=== PATIENT | female | born 1990 | race Caucasian/White ===

== ENCOUNTER 2020-05-27 01:00 | Observation (INO) | payer BC, SELFPAY ==
[2020-05-27 01:16] VITALS: BP 103/57; PULSE 84
--- NOTE | 2020-06-20 20:32 | PM.OBTRLD ---
OB - Triage/Final Diagnosis Final Diagnosis (1) Spotting: Code(s): N92.0 - Excessive and frequent menstruation with regular cycle Status: Acute
== END 2020-05-27 01:55 | disposition home or self-care (01) ==
PROVIDERS: Admitting Provider Obstetrics & Gynecology; Visit Provider Obstetrics & Gynecology
DX: O26.859 Spotting complicating pregnancy, unspecified trimester (principal); Z3A.00 Weeks of gestation of pregnancy not specified
CPT/HCPCS: G0378; G0379

== ENCOUNTER 2020-07-12 01:51 | Observation (INO) | payer BC, SELFPAY ==
--- NOTE | ~2020-07-12 | US_ITS ---
EXAMINATION: US OB limited w BPP DATE: 07/12/2020 07:08 INDICATION: Vaginal bleeding during third trimester TECHNIQUE: Real-time pelvic ultrasound was performed. The interpreting radiologist was not present fo r the study. COMPARISON: None. FINDINGS: There is a single living fetus in breech presentation. The placenta is anterior. heart rate is 159 beats per minute (bpm). The amniotic fluid index is 13.9 cm which is normal Biophysical profile performed by the technologist: breathing (30 sec sustained breathing in 30 minutes): 2 out of 2 movement (3 gross body movements in 30 minutes): 2 out of 2 tone (one episode of qzzkgfu-psnetqdji-szpoqrd limb movement): 2 out of 2 Amniotic fluid pocket (2 cm): 2 out of 2 Total score: 8 out of 8 IMPRESSION: 1. Single living fetus in breech presentation. 2. Biophysical profile 8 out of 8. 3. Normal amniotic fluid index. Reviewed, dictated and finalized at location A. [facility]
--- NOTE | 2020-07-12 01:51 | OBADM ---
This patient, Madiha Orta, admitted to the OB room OB Post 116 for observation. Patient/family oriented to hospital policies and general routines including ID bracelet, bed and alarms, visiting hours, pain management, procedures, bathroom and other care routines, personal items, smoking policy, room service/diet, and visiting hours. Patient/Family are encouraged to report perceived risks to care and to ask questions if they do not understand what they are told or what they should do.
[2020-07-12 02:05] VITALS: BP 112/67; PULSE 73; RESP 18; TEMP 36.3
[2020-07-12 02:15] VITALS: BMI 31.3
[2020-07-12] MEDS: LACTATED RINGERS 1,000 ML 999 ML IV CONT (02:41)
[2020-07-12 04:50] VITALS: BP 114/58; PULSE 81; RESP 20; TEMP 36.6
[2020-07-12] MEDS: LACTATED RINGERS 1,000 ML 125 ML IV CONT (07:26)
[2020-07-12 07:29] VITALS: BP 117/75; PULSE 95
[2020-07-12 07:59] VITALS: TEMP 36.6
--- NOTE | 2020-07-12 08:08 | PM.IMHP ---
H&P: HPI History of Present Illness Date/Time: 07/12/20 08:08 Chief complaint: Vag. bleeding Narrative: Madiha Orta is a 30 year old female Multiparous at 28 weeks gestation who presents for vaginal bleeding. She had a moderate amount of bright red vaginal bleeding. It resolved quickly. She denied any contractions, she denies any loss of fluid, she reports good movement. Denies any nausea, vomiting, fever, chills. She denies chest pain or shortness of breath. She reported a mild trauma where 1 of her children sat on her abdomen. It was mildly painful. She does have an anterior placenta. Review of Systems Constitutional: Constitutional: Reports no additional constitutional complaints, Denies fatigue, Denies headache(s), Denies lethargy and Denies weakness Eyes: Eyes: Reports no additional eye complaints, Denies blurry vision and Denies photophobia ENT: Reports as per HPI, Denies headache(s) and Denies neck pain Cardiovascular: Cardiovascular: Denies chest pain, Denies diaphoresis, Denies leg edema, Denies palpitations and Denies dyspnea Respiratory: Respiratory: Denies hemoptysis, Denies dyspnea and Denies wheezing Gastrointestinal: Gastrointestinal: Denies abdominal pain, Denies melena, Denies bloating, Denies hematochezia, Denies nausea and Denies vomiting Genitourinary: Genitourinary: Reports no additional female genitourinary complaints Musculoskeletal: Musculoskeletal: Denies joint swelling, Denies neck pain, Denies numbness and Denies stiffness Neurologic: Denies Abnormal speech present, Denies confusion, Denies headache(s), Denies numbness and Denies weakness Psychiatric: Psychiatric: Denies anxiety, Denies confusion, Denies depression, Denies homicidal ideation and Denies suicidal ideation Endocrine: Endocrine: Denies fatigue and Denies palpitations Allergic/Immunologic: Allergic/Immunologic: Denies wheezing Meds Home Medications and Allergies Home Medications Medication Instructions Recorded Confirmed Type multivit [id number] 1-dha 1 cap PO DAILY 07/12/20 07/12/20 History [PNV-DHA] Allergies Allergy/AdvReac Type Severity Reaction Status Date / Time shellfish derived Allergy Severe Anaphylactic Verified 06/25/18 13:32 Shock Sulfa (Sulfonamide Allergy Intermediate Hives Verified 07/12/20 02:22 Antibiotics) Vital Signs Vital Signs - 24 hr 07/12/20 02:05 07/12/20 04:50 07/12/20 07:29 Temperature 97.4 F L 98 F Pulse Rate 73 81 95 Respiratory Rate 18 20 Blood Pressure 112/67 114/58 L 117/75 07/12/20 07:59 Temperature 97.8 F Pulse Rate Respiratory Rate Blood Pressure Exam Const: General: healthy appearing, comfortable and no acute distress; No confusion Orientation/consciousness: No confusion Eyes: Direct Ophthalmoscopy: No photophobia Resp: Auscultation: clear to auscultation bilaterally, no rales, no rhonchi and no wheezes Cardio: Rate: regular rate Heart sounds: no click, no murmurs and no rubs GI: Inspection: non-distended GI Palp: No abdominal tenderness Auscultation: normal bowel sounds Neuro: General: No confusion Speech: No Abnormal speech present Extrem: General: normal to inspection, no pedal edema and no calf tenderness Assessment and Plan Assessment and plan (1) Third trimester bleeding, antepartum: Code(s): O46.93 - Antepartum hemorrhage, unspecified, third trimester Status: Acute Assessment and Plan: this patient is a 30-year-old multiparous female at 27 weeks gestation who presents for vaginal bleeding. She had ultrasound that was normal. She has an anterior placenta. She experienced a mild trauma. Her heart tones are appropriate for gestational age. There is no evidence of abruption. We will observe for appeared of time and have short-term follow-up. She was given precautions on bleeding. Will likely discharge shortly.
--- NOTE | 2020-07-12 08:11 | PM.PROC ---
Procedure Note - Detailed Date of procedure: 07/12/20 Pre-op diagnosis: Vag. bleeding Post-op diagnosis: same Surgeon: Kely Malagon MD
[2020-07-12 11:05] VITALS: BP 101/54; PULSE 93; TEMP 36.8
--- NOTE | 2020-07-17 08:23 | PM.OBTRLD ---
OB - Triage/Final Diagnosis Visit Information Date of evaluation: 07/12/20 Reason for evaluation: threatened labor
== END 2020-07-12 13:50 | disposition home or self-care (01) ==
PROVIDERS: Admitting Provider Obstetrics & Gynecology; PCP Family Medicine; Visit Provider Obstetrics & Gynecology
DX: O46.93 Antepartum hemorrhage, unspecified, third trimester (principal); Z3A.28 28 weeks gestation of pregnancy
CPT/HCPCS: 76815; 76819; 96360; 96361; G0378; G0379; J7120

== ENCOUNTER 2020-08-03 14:22 | Observation (INO) | payer BC, SELFPAY ==
--- NOTE | 2020-08-03 14:22 | OBADM ---
This patient, Madiha Orta, admitted to the OB room OB Post 115 for observation. Patient/family oriented to hospital policies and general routines including ID bracelet, bed and alarms, visiting hours, pain management, procedures, bathroom and other care routines, personal items, smoking policy, room service/diet, and visiting hours. Patient/Family are encouraged to report perceived risks to care and to ask questions if they do not understand what they are told or what they should do.
[2020-08-03 14:51] VITALS: BP 113/64; PULSE 88
[2020-08-03 15:00] VITALS: TEMP 36.8
[2020-08-03 15:20] LABS: Add Urine Microscopic? YES; Appearance Urine Clear (Clear); Bacteria Urine Trace /hpf; Bilirubin Urine Negative (Negative); Blood Urine 1+ (Negative); Color Urine Straw (Yellow); Glucose Urine UA Negative (Negative); Ketones Urine Negative (Negative); Leukocyte Esterase Ur Negative LEU/UL (NEGATIVE); Mucus Urine Rare /lpf; Nitrate Urine Negative (Negative); Protein Urine Negative (Negative); RBC Urine 0-2 /hpf (0-2); Specific Grav Ur 1.008 (1.001-1.035); Squamous Epithelial Cell Urine Occasional /hpf (Few); Urobilinogen Urine Negative mg/dL (<2.0); WBC Urine 0-3 /hpf (0-3)
[2020-08-03 15:21] VITALS: BMI 32.2
[2020-08-03 15:23] LABS: Fetal Fibronectin Negative
[2020-08-03] MEDS: TERBUTALINE SULFATE 1 MG/ML VIAL 0.25 MG SUB-Q (15:51)
--- NOTE | 2020-08-05 10:16 | PM.OBTRLD ---
OB - Triage/Final Diagnosis Visit Information Date of evaluation: 08/03/20 Reason for evaluation: threatened labor Evaluation Laboratory results: Laboratory Tests 08/03/20 08/03/20 14:50 15:07 Urine Color Straw Urine Appearance Clear Urine pH 7.0 Ur Specific [place] 1.008 Urine Protein Negative Urine Glucose (UA) Negative Urine Ketones Negative Ur Blood (Man) 1+ H Urine Nitrate Negative Urine Bilirubin Negative Urine Urobilinogen Negative Ur Leukocyte Esterase Negative Urine RBC 0-2 Urine WBC 0-3 Ur Squamous Epith Cells Occasional Urine Bacteria Trace Urine Mucus Rare Fibronectin Negative
== END 2020-08-03 17:07 | disposition home or self-care (01) ==
PROVIDERS: Advanced Practice Midwife; Admitting Provider Obstetrics & Gynecology; PCP Family Medicine; Visit Provider Obstetrics & Gynecology
DX: O47.03 False labor before 37 completed weeks of gestation, third trimester (principal); Z3A.31 31 weeks gestation of pregnancy
CPT/HCPCS: 81001; 82731; 87086; 96372; G0378; G0379; J3105

== ENCOUNTER 2020-08-19 13:04 | Observation (INO) | payer BC, SELFPAY ==
[2020-08-19 13:26] VITALS: TEMP 36.2
--- NOTE | 2020-08-19 13:55 | PC.NURSE ---
Dr. Malagon informed of pt's arrival with c/o increased wetness in her underwear on and off since last Sunday08/09/20. ROM plus was negative. FHT's are reactive, but 3 contractions with uterine irritability noted. Pt has had a couple episodes of vaginal bleeding during the and was given a dose of Brethine on 08/03 for contractions. Order received to give a dose of Brethine now.
[2020-08-19 14:21] VITALS: BP 112/79; PULSE 79
[2020-08-19] MEDS: TERBUTALINE SULFATE 1 MG/ML VIAL 0.25 MG SUB-Q (14:24)
[2020-08-19 14:30] VITALS: BMI 32.2
--- NOTE | 2020-08-19 14:30 | OBADM ---
This patient, Madiha Orta, admitted to the OB room OB Post 113 for observation. Patient/family oriented to hospital policies and general routines including ID bracelet, bed and alarms, visiting hours, pain management, procedures, bathroom and other care routines, personal items, smoking policy, room service/diet, and visiting hours. Patient/Family are encouraged to report perceived risks to care and to ask questions if they do not understand what they are told or what they should do.
[2020-08-19 14:49] LABS: Add Urine Microscopic? YES; Appearance Urine Cloudy (Clear); Bacteria Urine Trace /hpf; Bilirubin Urine Negative (Negative); Blood Urine Negative (Negative); Color Urine Straw (Yellow); Glucose Urine UA Negative (Negative); Ketones Urine Negative (Negative); Leukocyte Esterase Ur 3+ LEU/UL (Negative); Mucus Urine Rare /lpf; Nitrate Urine Negative (Negative); Protein Urine Negative (Negative); Specific Grav Ur 1.008 (1.001-1.035); Squamous Epithelial Cell Urine Many /hpf (Few); Urobilinogen Urine Negative mg/dL (<2.0)
[2020-08-19 15:00] VITALS: BP 92/50; PULSE 114
[2020-08-19 16:00] VITALS: BP 122/72; PULSE 98
--- NOTE | 2020-08-19 16:34 | PM.IMHP ---
H&P: HPI History of Present Illness Date/Time: 08/19/20 16:34 Chief complaint: R/O Contractions/Leaking Narrative: Madiha Orta is a 30 year old female 3 para 2001 at 34 weeks gestation presented with watery vaginal discharge. She also has some mild contractions. She denies any urinary symptoms. She denies any frequency, urgency or dysuria. She denies any vaginal bleeding. Reports good movement. Review of Systems Constitutional: Constitutional: Reports no additional constitutional complaints, Denies fatigue, Denies headache(s), Denies lethargy and Denies weakness Eyes: Eyes: Reports no additional eye complaints, Denies blurry vision and Denies photophobia ENT: Reports as per HPI, Denies headache(s) and Denies neck pain Cardiovascular: Cardiovascular: Denies chest pain, Denies diaphoresis, Denies leg edema, Denies palpitations and Denies dyspnea Respiratory: Respiratory: Denies hemoptysis, Denies dyspnea and Denies wheezing Gastrointestinal: Gastrointestinal: Denies abdominal pain, Denies melena, Denies bloating, Denies hematochezia, Denies nausea and Denies vomiting Genitourinary: Genitourinary: Reports no additional female genitourinary complaints Musculoskeletal: Musculoskeletal: Denies joint swelling, Denies neck pain, Denies numbness and Denies stiffness Neurologic: Denies Abnormal speech present, Denies confusion, Denies headache(s), Denies numbness and Denies weakness Psychiatric: Psychiatric: Denies anxiety, Denies confusion, Denies depression, Denies homicidal ideation and Denies suicidal ideation Endocrine: Endocrine: Denies fatigue and Denies palpitations Allergic/Immunologic: Allergic/Immunologic: Denies wheezing Meds Home Medications and Allergies Home Medications Medication Instructions Recorded Confirmed Type PNV-DHA 1 cap PO DAILY 07/12/20 08/19/20 History nitrofurantoin monohyd/m-cryst 100 mg PO Q12H #14 cap 08/19/20 Rx [Macrobid] Allergies Allergy/AdvReac Type Severity Reaction Status Date / Time shellfish derived Allergy Severe Anaphylactic Verified 06/25/18 13:32 Shock Sulfa (Sulfonamide Allergy Intermediate Hives Verified 07/12/20 02:22 Antibiotics) Vital Signs Vital Signs - 24 hr 08/19/20 13:26 08/19/20 14:21 08/19/20 15:00 Temperature 97.1 F L Pulse Rate 79 114 H Blood Pressure 112/79 92/50 L 08/19/20 16:00 Temperature Pulse Rate 98 Blood Pressure 122/72 Exam Const: General: healthy appearing, comfortable and no acute distress; No confusion Orientation/consciousness: No confusion Eyes: Direct Ophthalmoscopy: No photophobia Resp: Auscultation: clear to auscultation bilaterally, no rales, no rhonchi and no wheezes Cardio: Rate: regular rate Heart sounds: no click, no murmurs and no rubs GI: Inspection: non-distended GI Palp: No abdominal tenderness Auscultation: normal bowel sounds Neuro: General: No confusion Speech: No Abnormal speech present Extrem: General: normal to inspection, no pedal edema and no calf tenderness H&P: Results Labs Labs: Urine 08/19/20 Range/Units 14:25 Urine Color Straw (Yellow) Urine Appearance Cloudy H (Clear) Urine pH 7.0 (5.0-9.0) Ur Specific [place] 1.008 (1.001-1.035) Urine Protein Negative (Negative) mg/dL Urine Glucose (UA) Negative (Negative) mg/dL Assessment and Plan Assessment and plan (1) Vaginal discharge during in third trimester: Code(s): O26.893 - Other specified related conditions, third trimester; N89.8 - Other specified noninflammatory disorders of vagina Status: Acute (2) contractions: Code(s): O47.9 - False labor, unspecified Status: Acute (3) Urinary tract infection: Code(s): N39.0 - Urinary tract infection, site not specified Status: Acute Assessment and Plan: This patient is a 30-year-old multiparous female 34 weeks gestation who had watery vagina
[2020-08-19] MEDS: cefTRIAXone 1 GM VIAL IM (16:46)
== END 2020-08-19 17:02 | disposition home or self-care (01) ==
PROVIDERS: Admitting Provider Obstetrics & Gynecology; PCP Family Medicine; Visit Provider Obstetrics & Gynecology
DX: O26.893 Other specified pregnancy related conditions, third trimester (principal); N89.8 Other specified noninflammatory disorders of vagina; O47.03 False labor before 37 completed weeks of gestation, third trimester; N39.0 Urinary tract infection, site not specified; Z3A.34 34 weeks gestation of pregnancy
CPT/HCPCS: 81001; 84112; 87086; 87088; G0378; G0379; J0696; J3105

== ENCOUNTER 2020-09-03 19:42 | Observation (INO) | payer BC, SELFPAY ==
[2020-09-03 19:59] VITALS: BP 124/75; PULSE 93
[2020-09-03 20:00] VITALS: BMI 33.5
[2020-09-03 20:01] VITALS: BP 122/79; PULSE 96
[2020-09-03 20:16] VITALS: BP 110/74; PULSE 93
[2020-09-03 20:31] VITALS: BP 112/73; PULSE 92
[2020-09-03 20:46] VITALS: BP 117/71; PULSE 90
[2020-09-03 20:52] VITALS: TEMP 36.6
--- NOTE | 2020-09-03 21:08 | OBADM ---
This patient, Madiha Orta, admitted to the OB room Labor/Delivery/Recovery 106 for observation. Patient/family oriented to hospital policies and general routines including ID bracelet, bed and alarms, visiting hours, pain management, procedures, bathroom and other care routines, personal items, smoking policy, room service/diet, and visiting hours. Patient/Family are encouraged to report perceived risks to care and to ask questions if they do not understand what they are told or what they should do.
--- NOTE | 2020-09-28 20:39 | PM.OBTRLD ---
OB - Triage/Final Diagnosis Final Diagnosis (1) contractions: Code(s): O47.9 - False labor, unspecified Status: Acute
== END 2020-09-03 21:06 | disposition home or self-care (01) ==
PROVIDERS: Admitting Provider Obstetrics & Gynecology; PCP Family Medicine; Visit Provider Obstetrics & Gynecology
DX: O47.03 False labor before 37 completed weeks of gestation, third trimester (principal); Z3A.36 36 weeks gestation of pregnancy
CPT/HCPCS: G0378; G0379

== ENCOUNTER 2020-09-15 19:14 | Emergency (ER) | payer BC, SELFPAY ==
--- NOTE | 2020-09-15 19:22 | ED.GENADULT ---
HPI - General Adult General Chief complaint: Extremity Problem,Nontraumatic Stated complaint: Blood clot, 38 weeks Time Seen by Provider: 09/15/20 19:22 Source: patient Mode of arrival: ambulatory Limitations: no limitations History of Present Illness HPI narrative: Madiha Orta is a 30 year old female 3 para 2001 currently 38 weeks who presents for evaluation of blood clot. Patient states she noticed a heaviness and cramping pain in her right lower calf which is currently rated 2/10 in severity. No associated redness. No recent fall or injury. No edema that she has noticed. Patient denies any chest pain or shortness of breath. No hemoptysis. No recent car or air travel. No history of DVT or coagulopathy. This has been otherwise uneventful aside from being evaluated for contractions that subsided during week 34. Patient feels good movement. She denies any abdominal pain. No vaginal bleeding or loss of fluids. She denies any current contraction-like pain. She denies headache. Her blood pressure has never been elevated this . Related Data Home Medications Medication Instructions Recorded Confirmed PNV-DHA 1 cap PO DAILY 07/12/20 09/03/20 Allergies Allergy/AdvReac Type Severity Reaction Status Date / Time shellfish derived Allergy Severe Anaphylactic Verified 08/31/20 12:42 Shock Sulfa (Sulfonamide Allergy Intermediate Hives Verified 08/31/20 12:42 Antibiotics) Review of Systems Review of Systems: Narrative: CONSTITUTIONAL: Denies fever, chills, or sweats. EYES: Denies visual changes, redness, or discharge. ENT: Denies rhinorrhea, congestion, sore throat, or otalgia. CARDIOVASCULAR: Denies chest pain, palpitations, or edema. RESPIRATORY: Denies cough or dyspnea. GASTROINTESTINAL: Denies abdominal pain, nausea, vomiting, or diarrhea. GENITOURINARY: Denies dysuria or hematuria. SKIN: Denies rash or itching. MUSCULOSKELETAL: Denies back pain, joint pain, reports right leg pain NEUROLOGIC: Denies headache, numbness, or weakness. PSYCHIATRIC: Reports mild anxiety PMFSH Past Medical History Medical History (Updated 09/15/20 @ 20:08 by Malena Rockwell MD) contractions Spotting Third trimester bleeding, antepartum Urinary tract infection Vaginal discharge during in third trimester Family History Family History (Updated 08/31/20 @ 12:46 by Nima Santamaria RN) Sibling Testicle cancer Father Asthma Mother Diabetes mellitus Grandparent Lung cancer Heart disease Diabetes mellitus Social History Social History Substance use: never Spiritual care concerns: No Exam Narrative: Exam Narrative: GENERAL: Awake, alert, conversant HEAD: Normocephalic, atraumatic. EYES: PERRLA and EOMI. ENT: Nares clear, no rhinorrhea or epistaxis. Mucous membranes moist. NECK: Supple. CHEST: No respiratory distress, breathing even and non labored HEART: Regular rate, sinus rhythm ABDOMEN:Gravid, non tender, no RUQ tenderness EXTREMITIES: Normal range of motion. No pitting edema. Mild calf tenderness in right calf on exam. No erythema. One small area of ecchymoses right upper thigh. No streaking erythema. No thigh tenderness. SKIN: Warm, dry, no rash. NEURO:No focal deficits. Alert and oriented x3 Course Vital Signs Vital signs: Vital Signs Temperature 36.7 C 09/15/20 19:23 Pulse Rate 93 09/15/20 19:23 Respiratory Rate 18 09/15/20 19:23 Blood Pressure 133/74 09/15/20 19:23 Pulse Oximetry 100 09/15/20 19:23 Temperature 36.7 C 09/15/20 19:23 Pulse Rate 93 09/15/20 19:23 Respiratory Rate 18 09/15/20 19:23 Blood Pressure 133/74 09/15/20 19:23 Pulse Oximetry 100 09/15/20 19:23 Medical Decision Making MDM Narrative Medical decision making narrative: Patient presented for evaluation of right leg cramping. The time of assessment pain is mild. No pitting edema on exam. No clinical s
[2020-09-15 19:23] VITALS: BP 133/74; PULSE 93; RESP 18; TEMP 36.7; O2SAT 100
[2020-09-15 19:48] LABS: Basophils Percent Auto 0.1 % (0.2-1.2); Eosinophils Percent Auto 0.2 % (0-4.4); Hematocrit 34.3 % (37.0-47.0); Hemoglobin 12.2 g/dL (12.0-15.0); Immature Granulocyte Absolute 0.03 K/mm3 (0.00-0.031); Immature Granulocyte Percent A 0.3 % (0-0.5); Lymphocytes Percent Auto 18.5 % (18.3-44.2); Mean Corpuscular HGB Conc 35.6 g/dl (32-36); Mean Corpuscular Hemoglobin 32.3 pg (26-34); Mean Corpuscular Volume 90.7 fl (80-100); Mean Platelet Volume 11.6 fl (7.4-10.4); Monocytes Absolute Auto 0.5 K/mm3 (0.1-0.6); Monocytes Percent Auto 5.1 % (2.6-8.5); Neutrophils Percent Auto 75.8 % (45.5-73.1); Platelet Count Result 174 k/mm3 (150-375); Red Blood Count 3.78 M/mm3 (4.2-5.4); Red Cell Distribution Width 12.6 % (11.5-14.5); White Blood Count 9.2 K/mm3 (4.5-10.0)
[2020-09-15 19:59] LABS: INR 0.9; Partial Thromboplastin Time 26.7 SECONDS (22.3-36.8); Prothrombin Time 12.4 Seconds (11.1-14.7)
[2020-09-15 20:00] LABS: Anion Gap 9 mmol/L (8-16); Blood Urea Nitrogen 7 mg/dL (7-17); Calcium 9.3 mg/dL (8.4-10.2); Carbon Dioxide 22 mmol/L (22-30); Chloride 102 mmol/L (98-107); Estimated CRCL calculation 139 ml/min; Estimated Glomerular Filt Rate > 60; Glucose 104 mg/dL (65-105); Potassium 3.7 mmol/L (3.4-5.0); Sodium 133 mmol/L (137-145)
[2020-09-15 20:02] LABS: D Dimer 0.96 ug/mL (<0.48)
[2020-09-15 20:27] VITALS: BP 118/68; PULSE 94; RESP 18; O2SAT 98
[2020-09-15] MEDS: ENOXAPARIN 80 MG/0.8 ML SYRINGE SUB-Q (20:27)
== END 2020-09-15 20:30 | disposition home or self-care (01) ==
PROVIDERS: Emergency Provider Emergency Medicine; PCP Family Medicine
DX: O26.893 Other specified pregnancy related conditions, third trimester (principal); M79.604 Pain in right leg; Z3A.38 38 weeks gestation of pregnancy
CPT/HCPCS: 36415; 80048; 85025; 85380; 85610; 85730; 96372; 99283; J1650

== ENCOUNTER 2020-09-16 07:49 | Outpatient (CLI) | payer BC, SELFPAY ==
--- NOTE | ~2020-09-16 | US_ITS ---
EXAMINATION:US venous doppler LE BI INDICATION:Right leg pain. Elevated d-dimer. 38 weeks TECHNIQUE: Multiple grayscale, color flow and Doppler images of the right and left lower extremity de ep venous systems were obtained and reviewed. COMPARISON:No prior studies for comparison. FINDINGS: The common femoral, superficial femoral and popliteal veins demonstrate normal respiratory variation, augmentation and compressibility. Color flow is also seen within the posterior tibial, pe roneal, greater saphenous and profunda veins. IMPRESSION: 1: No lower extremity deep venous thrombosis. Reviewed, dictated and finalized at location A. [facility]IS[facility]
== END 2020-09-16 07:50 | disposition home or self-care (01) ==
PROVIDERS: PCP Family Medicine; Visit Provider Obstetrics & Gynecology
DX: M79.661 Pain in right lower leg (principal); R79.89 Other specified abnormal findings of blood chemistry
CPT/HCPCS: 93970

== ENCOUNTER 2020-09-22 07:02 | Inpatient (IN) | payer BC, SELFPAY ==
[2020-09-22] VITALS (55 sets, daily range): BP systolic 95–140; BP diastolic 54–95; PULSE 63–138; RESP 15–20; TEMP 36.1–37; O2SAT 95–100; BMI 34.0
--- NOTE | ~2020-09-22 | US_ITS ---
EXAMINATION: US OB limited DATE: 09/22/2020 08:25 INDICATION: Assess presentation, third trimester TECHNIQUE: Real-time ultrasound of the pelvis was performed. The interpreting radiologist was not pre sent for the study. COMPARISON: None. FINDINGS: There is a single living fetus in breech presentation. The placenta is anterior. card iac activity and movement are noted. heart rate is 149 beats per minute (bpm). The amniot ic fluid index is subjectively normal. IMPRESSION: 1. Single living fetus in breech presentation. Reviewed, dictated and finalized at location A. NNAISE MIXER
--- NOTE | 2020-09-22 07:02 | LDADM ---
This patient, Madiha Orta, was admitted to Labor/Delivery/Recovery 106 on 09/22/20 at 07:02. Plans for labor, pain management and were discussed with patient. Patient/family oriented to hospital policies and general routines including ID bracelet, bed and alarms, visiting hours, pain management, procedures, bathroom and other care routines, personal items, smoking policy, room service/diet and guest tray routines, infant security routines, and visiting hours. Patient/Family are encouraged to report perceived risks to care and to ask questions if they do not understand what they are told or what they should do. See OBIX for further documentation.
[2020-09-22] MEDS: LACTATED RINGERS 1,000 ML 125 ML IV CONT ×2 (07:38→10:06)
[2020-09-22] MEDS: OXYTOCIN 30 UNITS/NS 500 ML 30 UNITS/500 ML BAG IV CONT (07:38)
[2020-09-22 07:46] LABS: Basophils Percent Auto 0.1 % (0.2-1.2); Eosinophils Percent Auto 0.4 % (0-4.4); Hematocrit 34.9 % (37.0-47.0); Hemoglobin 11.9 g/dL (12.0-15.0); Immature Granulocyte Absolute 0.02 K/mm3 (0.00-0.031); Immature Granulocyte Percent A 0.2 % (0-0.5); Lymphocytes Absolute Auto 1.63 K/mm3 (0.9-3.2); Lymphocytes Percent Auto 18.3 % (18.3-44.2); Mean Corpuscular HGB Conc 34.1 g/dl (32-36); Mean Corpuscular Hemoglobin 31.5 pg (26-34); Mean Corpuscular Volume 92.3 fl (80-100); Monocytes Absolute Auto 0.4 K/mm3 (0.1-0.6); Monocytes Percent Auto 4.8 % (2.6-8.5); Neutrophils Absolute Auto 6.8 K/mm3 (1.3-6.7); Neutrophils Percent Auto 76.2 % (45.5-73.1); Platelet Count Result 160 k/mm3 (150-375); Red Blood Count 3.78 M/mm3 (4.2-5.4); Red Cell Distribution Width 12.9 % (11.5-14.5); White Blood Count 8.9 K/mm3 (4.5-10.0)
--- NOTE | 2020-09-22 08:20 | WPDOBADMIT ---
Obstetrics - Admit Note Admission Note: 30 y/o @ 39 weeks. Here for elective induction. After AROM breech presentation noted. record reviewed. No pertinent additions to the history and/or any subsequent changes in the physical findings that are not consistent with the expected course of the were found. Additions to the history and/or subsequent changes in the physical findings follow. None.
--- NOTE | 2020-09-22 08:20 | PM.IMHP ---
H&P: HPI History of Present Illness Date/Time: 09/22/20 08:20 Chief Complaint: Elective induction of labor Narrative: Madiha Orta is a 30 year old female @ 39 weeks here for induction of labor. After AROM breech presentation was noted. Review of Systems Review of Systems: All systems reviewed & are unremarkable except as noted in HPI and below PMFSH Past Medical History Medical History contractions Spotting Third trimester bleeding, antepartum Urinary tract infection Vaginal discharge during in third trimester Family History Family History Sibling Testicle cancer Father Asthma Mother Diabetes mellitus Grandparent Lung cancer Heart disease Diabetes mellitus Social History Social History Smoking status: Never smoker Substance use: never Spiritual care concerns: No Meds Home Medications and Allergies Home Medications Medication Instructions Recorded Confirmed Type PNV-DHA 1 cap PO DAILY 07/12/20 09/22/20 History cyclobenzaprine 5 mg PO TID PRN 09/22/20 09/22/20 History Allergies Allergy/AdvReac Type Severity Reaction Status Date / Time shellfish derived Allergy Severe Anaphylactic Verified 09/22/20 07:23 Shock Sulfa (Sulfonamide Allergy Intermediate Hives Verified 09/22/20 07:23 Antibiotics) Vital Signs Vital Signs - 24 hr 09/22/20 07:23 09/22/20 07:25 09/22/20 07:31 Pulse Rate 118 H 118 H 106 H Blood Pressure 120/83 120/83 111/73 09/22/20 07:46 09/22/20 08:01 09/22/20 08:16 Pulse Rate 111 H 103 H 113 H Blood Pressure 111/75 130/92 H 140/95 H Exam Const: General: no acute distress HENMT: Ears: TM's normal bilaterally Eyes: General: appearance normal, both eyes and all related structures Neck: Neck: supple and no JVD Resp: Effort & Inspection: normal respiratory effort Auscultation: clear to auscultation bilaterally Cardio: Rate: regular rate Rhythm: regular rhythm GI: GI Palp: Yes Soft to palpation (gravid) Skin: General skin exam: normal color Neuro: General: gait normal Extrem: General: normal to inspection Right upper extremity: normal to inspection Left upper extremity: normal to inspection Right lower extremity: normal to inspection Left lower extremity: normal to inspection Psych: Mental Status: mental status grossly normal H&P: Results Labs Labs: Short CBC 09/22/20 Range/Units 07:34 WBC 8.9 (4.5-10.0) K/mm3 Hgb 11.9 L (12.0-15.0) g/dL Hct 34.9 L (37.0-47.0) % Plt Count 160 (150-375) k/mm3 Assessment and Plan Additional Plan Term Elective induction Ruptured Membranes Breech presentation section for breech presentation
--- NOTE | 2020-09-22 08:36 | WPDANESEPPF ---
Anes - Initial Pre Proc Eval Procedure: Operation Date: 09/22/20 08:45 Proposed Procedures p Section - Kely Malagon MD Date/Time: 09/22/20 08:36 Surgeon: Kely Malagon MD Pre Op Diagnosis: Induction of Labor Patient Data Age: 30 Gender: F Height: 5 ft 2 in Weight: 84.5 kg Last Vital Signs Temp 36.6 C 09/22/20 07:24 Pulse 75 09/22/20 08:31 BP 125/82 09/22/20 08:31 Allergies Allergy/AdvReac Type Severity Reaction Status Date / Time shellfish derived Allergy Severe Anaphylactic Verified 09/22/20 07:23 Shock Sulfa (Sulfonamide Allergy Intermediate Hives Verified 09/22/20 07:23 Antibiotics) Home Medications Medication Instructions Recorded Confirmed Type PNV-DHA 1 cap PO DAILY 07/12/20 09/22/20 History cyclobenzaprine 5 mg PO TID PRN 09/22/20 09/22/20 History Laboratory Tests 09/22/20 09/22/20 07:34 07:34 WBC 8.9 K/mm3 K/mm3 (4.5-10.0) RBC 3.78 M/mm3 L M/mm3 (4.2-5.4) Hgb 11.9 g/dL L g/dL (12.0-15.0) Hct 34.9 % L % (37.0-47.0) MCV 92.3 fl fl (80-100) MCH 31.5 pg pg (26-34) MCHC 34.1 g/dl g/dl (32-36) RDW 12.9 % % (11.5-14.5) Plt Count 160 k/mm3 k/mm3 (150-375) MPV 12.0 fl H fl (7.4-10.4) Immature Gran % (Auto) 0.2 % % (0-0.5) Neut % (Auto) 76.2 % H % (45.5-73.1) Lymph % (Auto) 18.3 % % (18.3-44.2) [place] % (Auto) 4.8 % % (2.6-8.5) Eos % (Auto) 0.4 % % (0-4.4) Baso % (Auto) 0.1 % L % (0.2-1.2) Lymph # (Auto) 1.63 K/mm3 K/mm3 (0.9-3.2) [place] # (Auto) 0.4 K/mm3 K/mm3 (0.1-0.6) Eos # (Auto) 0.0 K/mm3 K/mm3 (0-0.3) Baso # (Auto) 0.0 K/mm3 K/mm3 (0.0-0.1) Abs Immat Gran (auto) 0.02 K/mm3 K/mm3 (0.00-0.031) Absolute Neuts (auto) 6.8 K/mm3 H K/mm3 (1.3-6.7) Absolute Nucleated RBC 0.0 K/mm3 K/mm3 (0.0-0.012) Nucleated RBC % 0.0 % % (0.0-0.2) RPR Pending Patient hx anesthesia problems: none Family hx anesthesia problems: none PMFSH Past Medical History Medical History (Updated 09/22/20 @ 08:36 by Margarito Garcia MD) Breech presentation contractions Spotting Third trimester bleeding, antepartum Urinary tract infection Vaginal discharge during in third trimester Family History Family History Sibling Testicle cancer Father Asthma Mother Diabetes mellitus Grandparent Lung cancer Heart disease Diabetes mellitus Social History Social History Smoking status: Never smoker Substance use: never Spiritual care concerns: No Anes - Eval Final PreProcedure Day of Procedure 09/22/20 08:36 Patient weight: obese Heart: regular rate and rhythm Lungs: clear to auscultation Airway: Mallampati scale class II Neurological: alert and oriented Last oral intake: >/= 8 hours ASA classification: II Emergent: no Anesthetic plan: proceed Anesthesia type and monitoring: regional spinal and standard monitoring Informed Consent: The patient's anesthetic plan and its attendant risks and benefits were discussed with the patient/family/POA. Questions were solicited and answers provided to the satisfaction of the patient/family/POA.
[2020-09-22] MEDS: ceFAZolin 2 GM/D5W 50 ML 2 GM/50 ML BAG IVPB (08:40)
[2020-09-22] MEDS: ONDANSETRON INJ 4 MG/2 ML VIAL IV PUSH (09:05)
--- NOTE | 2020-09-22 09:42 | PM.OBPRVD ---
OB - Delivery Note Procedure Delivery date: 09/22/20 Procedure: Procedures Operation Date: 09/22/20 08:45 Actual Procedures Side Surgeon p Section Vale Mendoza MD Intrapartal events: Other (breech presentation) Route of delivery: Quantitative Blood Loss (ml): 603 Anesthesia type: Spinal Disposition: floor Complications: none Narrative: The patient was taken to the OR and received spinal anesthesia. She was placed in dorsal supine position with left lateral tilt. SCDs and hall were placed. She was prepped and draped in the normal sterile fashion. A Pfannensteil skin incision was made and carried through to the underlying layer of fascia. The fascia was incised in the midline and then extended laterally using Quinn scissors. The muscles were in the midline and the peritoneum was entered bluntly. The peritoneal incision was extended inferiorly and superiorly with care to avoid the bladder. The bladder blade was then inserted, the vesicouterine peritoneum was grasped, incised with Metzenbaum scissors, and a bladder flap created. The bladder blade was reinserted. A low transverse uterine incision was made with a scalpel and extended bluntly. AROM was performed and fluid was noted to be clear. The baby was delivered breech with the usual maneuvers and no difficulties. The baby's oropharynx was suctioned. The was handed off. Cord blood was obtained and the placenta was then removed manually. The uterus was exteriorized. A moist lap sponge was used to curette the endometrium. The uterine incision was then closed with one layer of 0-Vicryl in a running, locking fashion. Good hemostasis was noted. The posterior cul de sac was irrigated with normal saline and cleared of all clot and debris. The uterus was returned to the abdomen. Both lateral gutters were then irrigated. The rectus muscles were inspected and found to be hemostatic. The fascia was reapproximated using 0-Vicryl in running fashion. The subcutaneous tissue was irrigated with normal saline and made hemostatic with Bovie electrocautery. The skin was then closed with 4-0 Vicryl in a subcuticular fashion. Steri strips and a bandage were applied. The uterus was evacuated. The patient tolerated the procedure very well. All counts were correct. She was taken to the recovery room in good condition. Baby Date of : 09/22/20 Time of : 09:03 Weeks of gestation at delivery: 39 gender: Male Weight (pounds): 8 Weight (ounces): 0 presentation: bogdan breech Placenta delivery description: Manual Removal cord vessel description: 3 Vessels and Nuchal Cord (x2) score one minute: 9 score five minutes: 9
[2020-09-22] MEDS: diphenhydrAMINE HCl INJ 50 MG/ML VIAL 25 MG IV PUSH (10:34)
--- NOTE | 2020-09-22 12:19 | PC.NURSE ---
Patient transferred to post room #282 via stretcher. Support person present. Oriented to unit, room, information board, rooming in, admission packet and security measures. Patient verbalizes understanding.
[2020-09-22] MEDS: KETOROLAC 30 MG/ML VIAL (*BKC) IV PUSH (12:56)
[2020-09-22] MEDS: LORATADINE 10 MG TABLET PO (12:56)
[2020-09-22] MEDS: DEXTROSE 5%/0.45% SOD CHL 1,000 ML 125 ML IV CONT (14:28)
[2020-09-22] MEDS: IBUPROFEN 600 MG TABLET PO (20:40)
[2020-09-23] VITALS: BP 100/56; PULSE 80; RESP 16; TEMP 36.8; O2SAT 100
[2020-09-23] MEDS: IBUPROFEN 600 MG TABLET PO ×3 (03:51→16:32)
[2020-09-23 04:00] VITALS: BP 102/53; PULSE 67; RESP 16; TEMP 36.7; O2SAT 99
[2020-09-23 05:34] LABS: Basophils Percent Auto 0.2 % (0.2-1.2); Eosinophils Absolute Auto 0.1 K/mm3 (0-0.3); Eosinophils Percent Auto 0.9 % (0-4.4); Hematocrit 29.1 % (37.0-47.0); Hemoglobin 9.9 g/dL (12.0-15.0); Immature Granulocyte Absolute 0.02 K/mm3 (0.00-0.031); Immature Granulocyte Percent A 0.2 % (0-0.5); Lymphocytes Percent Auto 13.9 % (18.3-44.2); Mean Corpuscular Hemoglobin 31.7 pg (26-34); Mean Corpuscular Volume 93.3 fl (80-100); Mean Platelet Volume 11.8 fl (7.4-10.4); Monocytes Absolute Auto 0.4 K/mm3 (0.1-0.6); Monocytes Percent Auto 4.5 % (2.6-8.5); Neutrophils Absolute Auto 6.9 K/mm3 (1.3-6.7); Neutrophils Percent Auto 80.3 % (45.5-73.1); Platelet Count Result 137 k/mm3 (150-375); Red Blood Count 3.12 M/mm3 (4.2-5.4); Red Cell Distribution Width 12.9 % (11.5-14.5); White Blood Count 8.6 K/mm3 (4.5-10.0)
--- NOTE | 2020-09-23 08:11 | P.PNOB_ITS ---
OB - PN: Subj Subjective Date/time seen: 09/23/20 08:11 Patient comments: no complaints, pain well controlled, tolerating diet and flatus present OB - PN: Obj Data Labs CBC & Chem 7: 09/23/20 05:15 Labs: Laboratory Results - last 24 hr 09/22/20 09/23/20 07:34 05:15 WBC 8.6 RBC 3.12 L Hgb 9.9 L Hct 29.1 L MCV 93.3 MCH 31.7 MCHC 34.0 RDW 12.9 Plt Count 137 L MPV 11.8 H Immature Gran % (Auto) 0.2 Neut % (Auto) 80.3 H Lymph % (Auto) 13.9 L [place] % (Auto) 4.5 Eos % (Auto) 0.9 Baso % (Auto) 0.2 Lymph # (Auto) 1.20 [place] # (Auto) 0.4 Eos # (Auto) 0.1 Baso # (Auto) 0.0 Abs Immat Gran (auto) 0.02 Absolute Neuts (auto) 6.9 H Absolute Nucleated RBC 0.0 Nucleated RBC % 0.0 Blood Type A Positive Antibody Screen Negative Imaging Radiologist's impression: Impressions Obstetrics Ultrasound 09/22/20 08:31 IMPRESSION: 1. Single living fetus in breech presentation. OB - PN A/P Plan day: 1 Comments: Post Op LTCS - no problems, routine recovery Time Spent With Patient Time: Total time spent is greater than 50% in coordination of care (as documented) at patient's floor/unit and/or counseling patient: Exam Const: General: cooperative, healthy appearing, comfortable and no acute distress Resp: Auscultation: no crackles, no rales, no rhonchi and no wheezes Cardio: Rhythm: regular rhythm Heart sounds: no click and no murmurs GI: Inspection: non-distended Auscultation: normal bowel sounds Extrem: General: normal to inspection, no pedal edema and no calf tenderness
[2020-09-23 08:20] VITALS: BP 105/59; PULSE 72; RESP 18; TEMP 36.5; O2SAT 100
[2020-09-23] MEDS: MULTIVIT/MIN/PREN/FOL AC/IRON TABLET 1 TAB PO (08:53)
[2020-09-23] MEDS: POLYSACCHARIDE IRON COMPLEX 150 MG CAPSULE PO ×2 (08:53→16:32)
[2020-09-23] MEDS: DOCUSATE SODIUM 100 MG CAPSULE PO ×2 (08:53→16:32)
[2020-09-23 09:10] LABS: Rapid Plasma Reagin Non-Reactive (NonReactive)
--- NOTE | 2020-09-23 11:10 | WPDANLDPN2 ---
Anes-Prog Note L&D Date/Time: 09/23/20 11:10 Comfortable throughout: section Neuraxial method: spinal Epidural/Spinal procedure site: clean & non-tender Neuro status: Neuro function grossly intact. Cardiovascular status: normal Respiratory status: normal Airway patency: baseline Mental status: baseline Post-Op hydration status: normal Vital Signs: Last Vital Signs Temp 36.5 C 09/23/20 08:20 Pulse 72 09/23/20 08:20 Resp 18 09/23/20 08:20 BP 105/59 L 09/23/20 08:20 Pulse Ox 100 09/23/20 08:20 Pain score (VAS): 0/10. Patient resting in bed at time of assessment, appears comfortable. Support person at bedside. I/O: Intake & Output 09/22/20 09/23/20 09/23/20 23:59 07:59 15:59 Intake Total 990 1800 Output Total 700 2900 550 Balance 290 -1100 -550 Post-procedural complaints: none Patient feedback: Patient satisfied with anesthetic care.
--- NOTE | 2020-09-23 11:11 | WPDANLDNPN2 ---
Anes-Prog Note L&D-Neuraxial Date/Time: 09/23/20 11:11 Neuraxial medications: intrathecal PF morphine Opiod-related complaints: none Patient feedback: Patient satisfied with post-operative pain management.
[2020-09-23] MEDS: HYDROcodone/acetaminophen (*CRX) 5-325 MG TABLET 1 TAB PO ×2 (13:14→16:32)
[2020-09-23] MEDS: SIMETHICONE 80 MG TAB.CHEW PO (19:35)
[2020-09-23] MEDS: HYDROcodone/acetaminophen (*CRX) 10-325 MG TABLET 1 TAB PO (19:35)
[2020-09-23 19:50] VITALS: BP 105/63; PULSE 81; RESP 16; TEMP 36.7; O2SAT 98
[2020-09-24] MEDS: HYDROcodone/acetaminophen (*CRX) 10-325 MG TABLET 1 TAB PO ×3 (00:07→08:12)
[2020-09-24 07:35] VITALS: BP 101/58; PULSE 76; RESP 18; TEMP 36.2; O2SAT 98
--- NOTE | 2020-09-24 07:56 | PM.OBPNVD ---
OB - PN: Subj Subjective Date/time seen: 09/24/20 07:56 Patient comments: no complaints baby status: doing well OB - PN: Obj Data Labs CBC & Chem 7: 09/23/20 05:15 Labs: Laboratory Results - last 24 hr 09/22/20 07:34 RPR Non-reactive OB - PN A/P Plan day: 2 Plan: routine care and discharge home Time Spent With Patient Time: Total time spent is greater than 50% in coordination of care (as documented) at patient's floor/unit and/or counseling patient: Review of Systems Review of Systems: All systems reviewed & are unremarkable except as noted in HPI and below Exam Const: General: cooperative Nutritional Appearance: average body habitus Limitations: no limitations
--- NOTE | 2020-09-24 07:59 | PM.OBDSVD ---
DS: Admitting Diagnosis Admitting Diagnosis Admitting Diagnosis: post op OB - DS: Summary OB Procedures : None OB Procedures Intrapartum: OB Procedures: : None Peripartum Data Procedures: Procedures Operation Date: 09/22/20 08:45 Actual Procedures Side Surgeon p Section Bilateral Vale Mendoza MD Time Spent with Patient Time attestation: Total time spent providing and/or coordinating discharge services: DS: Data Data Completed and Pending Labs on day of discharge: Labs from last 24 hours 09/22/20 07:34 RPR Non-reactive Discharge Plan Discharge Attending physician on discharge: Vale Mendoza Discharging Clinician: Mayra Neal Patient Disposition: Home, Self-Care Activity: pelvic rest Diet: regular Patient Instructions: Antibiotic Form Stand Alone Forms: General Discharge Information Follow-up/Referrals: Vale Mendoza MD [Physician] - 1 Week Discharge Medications: New hydrocodone-acetaminophen 5-325 mg Tablet 1 tablet PO Q3H PRN (Reason: Moderate Pain (4-6)) 7 Days Qty: 20 RF: 0 Continued PNV-DHA 27 mg iron-1 mg -300 mg capsule 1 cap PO DAILY RF: 0 cyclobenzaprine 5 mg tablet 5 mg PO TID PRN (Reason: Muscle pain) RF: 0 Date of admission: 09/22/20 07:02 Primary Care Provider: Miguel,Angelo Harris Admitting Provider: Kely Malagon Attending physician on admission: Kely Malagon Condition: Stable
[2020-09-24] MEDS: MULTIVIT/MIN/PREN/FOL AC/IRON TABLET 1 TAB PO (08:11)
[2020-09-24] MEDS: SIMETHICONE 80 MG TAB.CHEW PO (08:11)
[2020-09-24] MEDS: DOCUSATE SODIUM 100 MG CAPSULE PO (08:12)
[2020-09-24] MEDS: IBUPROFEN 600 MG TABLET PO (08:12)
[2020-09-24] MEDS: POLYSACCHARIDE IRON COMPLEX 150 MG CAPSULE PO (08:12)
[2020-09-24] MEDS: HYDROcodone/acetaminophen (*CRX) 5-325 MG TABLET 1 TAB PO (11:57)
[2020-09-25 10:08] VITALS: BP 115/68; PULSE 91; RESP 16; TEMP 36.6; O2SAT 99
== END 2020-09-24 13:30 | disposition home or self-care (01) | DRG 788 ==
LOC: ANHLDR 09:10 → ANHOB2 12:23
PROVIDERS: Advanced Practice Midwife; Obstetrics & Gynecology; Admitting Provider Obstetrics & Gynecology; PCP Family Medicine; Visit Provider Obstetrics & Gynecology
PROC: 10D00Z1 Extraction of Products of Conception, Low, Open Approach (ICD-10-PCS; CPT 59514; principal; 2020-09-22 08:45)
DX: O32.1XX0 Maternal care for breech presentation, not applicable or unspecified (principal); O69.81X0 Labor and delivery complicated by cord around neck, without compression, not applicable or unspecified; Z3A.39 39 weeks gestation of pregnancy; Z37.0 Single live birth
CPT/HCPCS: 36415; 76815; 85025; 86592; 86850; 86900; 86901; A9270; J0131; J0690; J1200; J1885; J2274; J2370; J2405; J2590; J7120

== ENCOUNTER 2022-10-13 14:51 | Observation (INO) | payer BC, SELFPAY ==
[2022-10-13] VITALS (15 sets, daily range): BP systolic 107–117; BP diastolic 58–63; PULSE 84–111; TEMP 36.6; O2SAT 98–100; BMI 35.9
[2022-10-13] MEDS: TERBUTALINE SULFATE 1 MG/ML VIAL 0.25 MG SUB-Q (15:59)
[2022-10-13 16:13] LABS: Appearance Urine Slightly Cloudy (Clear); Bilirubin Urine Negative (Negative); Blood Urine Negative (Negative); Color Urine Light Yellow (Yellow); Glucose Urine UA Negative (Negative); Ketones Urine 1+ mg/dL (Negative); Leukocyte Esterase Ur Negative LEU/UL (Negative); Nitrate Urine Negative (Negative); Protein Urine Negative (Negative); Urobilinogen Urine 0.2 mg/dL (<2.0)
[2022-10-13 16:18] LABS: Amorphous Sediment Urine Few; Bacteria Urine Trace /hpf; Squamous Epithelial Cell Urine Few /hpf (Few); WBC Urine 0-3 /hpf
[2022-10-13 16:32] LABS: Add Urine Microscopic? YES
--- NOTE | 2022-10-13 17:18 | PC.NURSE ---
1700--pt reports she is not feeling any contractions. Tracing shows no contractions or irritability. DC to home.
--- NOTE | 2022-10-27 12:48 | PM.OBTRLD ---
OB - Triage/Final Diagnosis Visit Information Comments/Additional reasons for admission: I have assessed the risk for this patient, Madiha Orta, and determined that she would benefit from observation care. Evaluation Laboratory results: Laboratory Tests 10/13/22 15:55 Urine Color Light yellow Urine Appearance Slightly cloudy Urine pH 7.0 Ur Specific [place] 1.010 Urine Protein Negative Urine Glucose (UA) Negative Urine Ketones 1+ H Ur Blood (Man) Negative Urine Nitrate Negative Urine Bilirubin Negative Urine Urobilinogen 0.2 Leukocyte Esterase Rfl Negative Urine RBC 3-5 H Urine WBC 0-3 Ur Squamous Epith Cells Few Amorphous Sediment Few H Urine Bacteria Trace Hyaline Casts 1-2 Final Diagnosis (1) False labor: Code(s): O47.9 - False labor, unspecified Status: Acute
== END 2022-10-13 17:08 | disposition home or self-care (01) ==
PROVIDERS: Admitting Provider Obstetrics & Gynecology; Visit Provider Obstetrics & Gynecology
DX: O47.03 False labor before 37 completed weeks of gestation, third trimester (principal); Z3A.29 29 weeks gestation of pregnancy
CPT/HCPCS: 81001; 96372; G0378; G0379; J3105

== ENCOUNTER 2022-11-23 05:23 | Observation (INO) | payer BC, SELFPAY ==
[2022-11-23] VITALS (23 sets, daily range): BP systolic 106–115; BP diastolic 64–73; PULSE 62–105; O2SAT 98–100; BMI 35.0
[2022-11-23 06:45] LABS: Appearance Urine Clear (Clear); Bacteria Urine Rare /hpf; Bilirubin Urine Negative (Negative); Blood Urine Negative (Negative); Color Urine Yellow (Yellow); Glucose Urine UA Negative (Negative); Ketones Urine Negative (Negative); Leukocyte Esterase Ur 2+ LEU/UL (NEGATIVE); Nitrate Urine Negative (Negative); Non Pathogenic Casts 0-2; Protein Urine Negative (Negative); Specific Grav Ur 1.003 (1.001-1.035); Squamous Epithelial Cell Urine Few /hpf (Few); Urobilinogen Urine 0.2 mg/dL (<2.0)
[2022-11-23 07:00] LABS: Add Urine Microscopic? YES
[2022-11-23] MEDS: LACTATED RINGERS 1,000 ML 999 ML IV CONT (07:22)
[2022-11-23] MEDS: TERBUTALINE SULFATE 1 MG/ML VIAL 0.25 MG SUB-Q (07:29)
[2022-11-23] MEDS: ceFAZolin 1 GM/NS 50 ML 1 GM/50 ML BAG IVPB (07:35)
--- NOTE | 2022-11-23 07:40 | PM.OBTRLD ---
OB - Triage/Final Diagnosis Visit Information Date of evaluation: 11/23/22 Reason for evaluation: threatened labor and other ( urinary tract infection) Comments/Additional reasons for admission: I have assessed the risk for this patient, Madiha Orta, and determined that she would benefit from observation care. Evaluation Laboratory results: Laboratory Tests 11/23/22 06:28 Urine Color Yellow Urine Appearance Clear Urine pH 7.0 Ur Specific [place] 1.003 Urine Protein Negative Urine Glucose (UA) Negative Urine Ketones Negative Ur Blood (Man) Negative Urine Nitrate Negative Urine Bilirubin Negative Urine Urobilinogen 0.2 Ur Leukocyte Esterase 2+ H Urine RBC 3-5 H Urine WBC 11-20 H Ur Squamous Epith Cells Few Urine Bacteria Rare Urine Casts 0-2 Vital signs: Vital Signs - 24 hr 11/23/22 05:34 11/23/22 05:39 11/23/22 05:41 Pulse Rate 87 Blood Pressure 115/72 Pulse Oximetry 100 99 Oxygen Delivery 11/23/22 05:44 11/23/22 05:45 11/23/22 05:49 Pulse Rate 100 Blood Pressure 115/73 Pulse Oximetry 99 98 Oxygen Delivery 11/23/22 05:54 11/23/22 05:59 11/23/22 06:00 Pulse Rate 74 Blood Pressure 106/64 Pulse Oximetry 99 98 Oxygen Delivery 11/23/22 06:04 11/23/22 07:12 11/23/22 07:33 Pulse Rate Blood Pressure Pulse Oximetry 100 100 100 Oxygen Delivery 11/23/22 07:38 11/23/22 06:21 Pulse Rate Blood Pressure Pulse Oximetry 100 Oxygen Delivery Room Air
[2022-11-23] MEDS: FAMOTIDINE 20 MG/2 ML VIAL IV PUSH (08:26)
== END 2022-11-23 09:18 | disposition home or self-care (01) ==
PROVIDERS: Obstetrics & Gynecology; Admitting Provider Obstetrics & Gynecology; Visit Provider Obstetrics & Gynecology
DX: O47.03 False labor before 37 completed weeks of gestation, third trimester (principal); O99.891 Other specified diseases and conditions complicating pregnancy; N39.0 Urinary tract infection, site not specified; Z3A.35 35 weeks gestation of pregnancy
CPT/HCPCS: 81001; 87086; 96374; 96375; G0378; G0379; J0690; J3105; J7120

== ENCOUNTER 2022-12-13 09:58 | Observation (INO) | payer BC, SELFPAY ==
[2022-12-13 10:34] VITALS: BP 115/74; PULSE 91
[2022-12-13] MEDS: LACTATED RINGERS 1,000 ML 999 ML IV CONT (10:40)
[2022-12-13] MEDS: ONDANSETRON INJ 4 MG/2 ML VIAL IV PUSH (10:42)
[2022-12-13] MEDS: FAMOTIDINE 20 MG/2 ML VIAL IV PUSH (10:42)
[2022-12-13 11:43] LABS: Appearance Urine Turbid (Clear); Bacteria Urine 4+ /hpf; Bilirubin Urine 1+ (Negative); Blood Urine Negative (Negative); Color Urine Dark Yellow (Yellow); Glucose Urine UA Negative (Negative); Ketones Urine 3+ mg/dL (Negative); Leukocyte Esterase Ur 2+ LEU/UL (Negative); Need Manual Microscopic Reviewed; Nitrate Urine Negative (Negative); Protein Urine 1+ mg/dL (Negative); Specific Grav Ur 1.032 (1.001-1.035); Squamous Epithelial Cell Urine Many /hpf (Few); WBC Urine 51-100 /hpf; pH Urine 5.5 (5.0-9.0)
[2022-12-13 11:44] LABS: Add Urine Microscopic? YES
[2022-12-13] MEDS: DEXTROSE 5%/LACTATED RINGERS 1,000 ML 999 ML IV CONT (12:09)
--- NOTE | 2022-12-13 12:27 | WPDOBADMIT ---
Obstetrics - Admit Note Admission Note: record reviewed. Additions to the history and/or subsequent changes in the physical findings follow. 32 y/o at 38 weeks with nausea / vomiting. Some contractions, but no bleeding or leakage of fluid. Good movement. Prior . AVSS NST reactive TOCO: contractions every 5-7 min ABD soft, nontender, gravid EXT nontender Cervix / per RN UA: 3+ketones A: IUP at term with N/V. P: Continue IV fluids, antiemetics. Then home this afternoon to f/u as scheduled.
--- NOTE | 2022-12-27 14:48 | PM.OBTRLD ---
OB - Triage/Final Diagnosis Visit Information Comments/Additional reasons for admission: I have assessed the risk for this patient, Madiha Orta, and determined that she would benefit from observation care. Evaluation Laboratory results: Laboratory Tests 12/13/22 10:47 Urine Color Dark yellow Urine Appearance Turbid H Urine pH 5.5 Ur Specific [place] 1.032 Urine Protein 1+ H Urine Glucose (UA) Negative Urine Ketones 3+ H Ur Blood (Man) Negative Urine Nitrate Negative Urine Bilirubin 1+ H Urine Urobilinogen 1.0 Add Ur Microanalysis Reviewed Leukocyte Esterase Rfl 2+ H Urine RBC 6-10 H Urine WBC 51-100 H Ur Squamous Epith Cells Many H Urine Bacteria 4+ H Urine Casts 6-10 Final Diagnosis (1) Nausea and vomiting during : Code(s): O21.9 - Vomiting of , unspecified Status: Acute
== END 2022-12-13 14:30 | disposition home or self-care (01) ==
PROVIDERS: Admitting Provider Obstetrics & Gynecology; Visit Provider Obstetrics & Gynecology
DX: O26.893 Other specified pregnancy related conditions, third trimester (principal); R11.2 Nausea with vomiting, unspecified; O47.1 False labor at or after 37 completed weeks of gestation; Z3A.38 38 weeks gestation of pregnancy
CPT/HCPCS: 81001; 87086; 96374; 96375; G0378; G0379; J2405; J7120; J7121

== ENCOUNTER 2022-12-18 00:41 | Outpatient (CLI) | payer BC, SELFPAY ==
[2022-12-18] VITALS (16 sets, daily range): BP systolic 108–111; BP diastolic 64–69; PULSE 67–99; RESP 17; TEMP 37.1; O2SAT 95–98
[2022-12-18 01:30] LABS: Basophils Percent Auto 0.2 % (0.2-1.2); Eosinophils Percent Auto 0.2 % (0-4.4); Hematocrit 29.5 % (37.0-47.0); Hemoglobin 9.8 g/dL (12.0-15.0); Immature Granulocyte Absolute 0.01 K/mm3 (0.00-0.031); Immature Granulocyte Percent A 0.2 % (0-0.5); Lymphocytes Absolute Auto 1.39 K/mm3 (0.9-3.2); Lymphocytes Percent Auto 34.5 % (18.3-44.2); Mean Corpuscular HGB Conc 33.2 g/dl (32-36); Mean Corpuscular Hemoglobin 28.6 pg (26-34); Monocytes Absolute Auto 0.4 K/mm3 (0.1-0.6); Monocytes Percent Auto 9.2 % (2.6-8.5); Neutrophils Absolute Auto 2.2 K/mm3 (1.3-6.7); Neutrophils Percent Auto 55.7 % (45.5-73.1); Platelet Count Result 179 k/mm3 (150-375); Red Blood Count 3.43 M/mm3 (4.2-5.4); Red Cell Distribution Width 13.8 % (11.5-14.5)
[2022-12-18 01:37] LABS: Appearance Urine Clear (Clear); Bacteria Urine Rare /hpf; Bilirubin Urine Negative (Negative); Blood Urine Negative (Negative); Color Urine Yellow (Yellow); Glucose Urine UA Negative (Negative); Ketones Urine Trace mg/dL (Negative); Leukocyte Esterase Ur 1+ LEU/UL (NEGATIVE); Nitrate Urine Negative (Negative); Non Pathogenic Casts 0-2; Protein Urine Negative (Negative); RBC Urine 0-2 /hpf (0-2); Specific Grav Ur 1.012 (1.001-1.035); Squamous Epithelial Cell Urine Few /hpf (Few); pH Urine 6.5 (5.0-9.0)
[2022-12-18 01:38] LABS: Creatinine Urine 108.5 mg/dL; Total Protein Urine Random 9 mg/dL; Ur Ttl Prot Creatinine Ratio 0.08 mg/mg (0-0.20)
[2022-12-18 01:52] LABS: Alanine Aminotransferase 25 U/L (6-35); Alkaline Phosphatase 128 U/L (38-126); Anion Gap 5 mmol/L (8-16); Aspartate Amino Transferase 32 U/L (14-36); Bilirubin,Total 1.1 mg/dL (0.2-1.3); Blood Urea Nitrogen 4 mg/dL (7-17); Calcium 7.8 mg/dL (8.4-10.2); Carbon Dioxide 21 mmol/L (22-30); Chloride 102 mmol/L (98-107); Estimated Glomerular Filt Rate > 60; Glucose 86 mg/dL (65-110); Potassium 3.5 mmol/L (3.4-5.0); Sodium 128 mmol/L (137-145); Uric Acid 7.2 mg/dL (2.5-7.5)
[2022-12-18 01:57] LABS: Add Urine Microscopic? YES
--- NOTE | 2022-12-18 02:03 | PC.NURSE ---
Notified Dr. Esqueda of patient lab results. Updated Dr. Esqueda on maternal assessment and reactive NST. VSS. Discharge orders received.
--- NOTE | 2022-12-18 02:11 | PC.NURSE ---
Preeclampsia/HIP precautions reviewed with patient. Patient states understanding of education and denies questions. Patient left OB unit ambulating.
== END 2022-12-18 02:11 | disposition home or self-care (01) ==
LOC: ANHOBOP 00:44 → ANHOBPP 00:44
PROVIDERS: Visit Provider Obstetrics & Gynecology
DX: O13.9 Gestational [pregnancy-induced] hypertension without significant proteinuria, unspecified trimester (principal); Z3A.00 Weeks of gestation of pregnancy not specified
CPT/HCPCS: 36415; 59025; 80053; 81001; 82570; 84156; 84550; 85025; 87086; 99199

== ENCOUNTER 2022-12-18 13:04 | Outpatient (CLI) | payer BC, SELFPAY ==
[2022-12-18 13:33] LABS: Hematocrit 34.4 % (37.0-47.0); Hemoglobin 11.2 g/dL (12.0-15.0); Mean Corpuscular HGB Conc 32.6 g/dl (32-36); Mean Corpuscular Hemoglobin 28.3 pg (26-34); Mean Corpuscular Volume 86.9 fl (80-100); Mean Platelet Volume 12.7 fl (7.4-10.4); Platelet Count Result 179 k/mm3 (150-375); Red Blood Count 3.96 M/mm3 (4.2-5.4); White Blood Count 4.2 K/mm3 (4.5-10.0)
[2022-12-19 11:29] LABS: Rapid Plasma Reagin Non-Reactive (NonReactive)
== END 2022-12-18 13:05 | disposition home or self-care (01) ==
LOC: ANHLAB 13:07
PROVIDERS: Visit Provider Obstetrics & Gynecology
DX: Z34.93 Encounter for supervision of normal pregnancy, unspecified, third trimester (principal); Z3A.00 Weeks of gestation of pregnancy not specified
CPT/HCPCS: 36415; 85027; 86592; 86850; 86900; 86901

== ENCOUNTER 2022-12-19 10:01 | Inpatient (IN) | payer BC, SELFPAY ==
[2022-12-19] VITALS (54 sets, daily range): BP systolic 86–114; BP diastolic 47–80; PULSE 51–118; RESP 14–18; TEMP 36–36.9; O2SAT 95–100; BMI 36.8
--- NOTE | 2022-12-19 09:15 | PM.IMHP ---
H&P: HPI History of Present Illness Date/Time: 12/19/22 09:15 Chief Complaint: Here for c section. Narrative: 32 y/o at 39 2/7 weeks gestation. She has had a prior , desires repeat. Also desires permanent contraception with tubal ligation. History of gestational hypertension. BP has been fine in this . She took aspirin 81 mg daily. GBS neg. Review of Systems Review of Systems: All systems reviewed & are unremarkable except as noted in HPI and below PMFSH Past Medical History Medical History (Updated 12/19/22 @ 09:19 by Rush Esqueda MD) Breech presentation contractions Spotting Third trimester bleeding, antepartum Urinary tract infection Vaginal discharge during in third trimester Surgical History Surgical History History of delivery Family History Family History Sibling Testicle cancer Father Asthma Mother Diabetes mellitus Grandparent Lung cancer Heart disease Diabetes mellitus Social History Social History Smoking status: Never smoker Substance use: never Spiritual care concerns: No Meds Home Medications and Allergies Home Medications Medication Instructions Recorded Confirmed Type multivitamin no.47-iron fum 27 1 cap PO DAILY 07/12/20 12/18/22 History mg-folate no.1 1 mg-dha 300 mg capsule (PNV-DHA) Pepcid 1 tablet BYMOUTH DAILY 12/18/22 12/18/22 History ondansetron HCl 4 mg tablet 4 mg PO QID PRN Nausea 12/18/22 12/18/22 History Allergies Allergy/AdvReac Type Severity Reaction Status Date / Time shellfish derived Allergy Severe Anaphylactic Verified 12/18/22 01:26 Shock Sulfa (Sulfonamide Allergy Intermediate Hives Verified 12/18/22 01:26 Antibiotics) Exam Const: Orientation/consciousness: patient oriented x3 Other: Well-developed, well-nourished female in no acute distress. Neck: Thyroid: thyroid normal Lymphatic: no lymphadenopathy noted (in neck, axilla or inguinal nodes) Resp: Effort & Inspection: normal respiratory effort Auscultation: clear to auscultation bilaterally Cardio: Rate: regular rate Rhythm: regular rhythm Heart sounds: S1 normal heart sound present and S2 normal heart sound present GI: Other: ABD: Soft, nontender, nondistended, gravid. FH 39 cm. FHR 150 bpm. Breech presentation on exam. No guarding or rebound tenderness. No hepatosplenomegaly. : General: Yes no CVA tenderness Other: Cervix closed, thick. Back/Spine/Pelvis: Back: no CVA tenderness Skin: General skin exam: normal color and no rashes or lesions noted Neuro: General: patient oriented x3 Extrem: Other: Extremities: nontender with no edema Psych: Mental Status: mental status grossly normal Affect: normal affect Assessment and Plan Assessment and plan (1) History of delivery: Code(s): Z98.891 - History of uterine scar from previous surgery Status: Acute Assessment and Plan: A: IUP at 39 2/7 weeks with prior , breech presentation, desiring repeat. Desired sterility. P: Offered repeat with concurrent bilateral tubal ligation. She understands there are temporary methods of contraception available to her. She understands that there are nonsurgical options as well as surgical options. She understands that tubal ligation will render her permanently sterile. She understands that there is a failure rate associated with tubal ligation, as well as an inherent ectopic gestation risk. Furthermore, she understands risks of surgery to include risks of anesthesia, risks of pain, infection, bleeding, blood products, thromboembolic phenomena and damage to adjacent structures such as bowel, bladder, ureters, blood vessels and nerves. She understands all these risks and elects to proceed w
--- NOTE | 2022-12-19 10:56 | LDADM ---
This patient, Madiha Orta, was admitted to Labor/Delivery/Recovery 120 on 12/19/22 at 10:01. Plans for section, pain management and were discussed with patient. Patient/family oriented to hospital policies and general routines including ID bracelet, bed and alarms, visiting hours, pain management, procedures, bathroom and other care routines, personal items, smoking policy, room service/diet and guest tray routines, security routines, and visiting hours. Patient/Family are encouraged to report perceived risks to care and to ask questions if they do not understand what they are told or what they should do. See OBIX for further documentation.
[2022-12-19] MEDS: LACTATED RINGERS 1,000 ML 125 ML IV CONT (11:00)
--- NOTE | 2022-12-19 11:07 | P.PNAN_ITS ---
Anes - Initial Pre Proc Eval Procedure: Operation Date: 12/19/22 12:00 Proposed Procedures p Repeat Section with Bilateral Tubal Ligation - Rush Esqueda MD Date/Time: 12/19/22 11:07 Surgeon: Rush Esqueda MD Pre Op Diagnosis: Repeat Section Patient Data Age: 32 Gender: F Height: Weight: Last Vital Signs Pulse 73 12/19/22 10:46 BP 107/72 12/19/22 10:46 Allergies Allergy/AdvReac Type Severity Reaction Status Date / Time shellfish derived Allergy Severe Anaphylactic Verified 12/18/22 01:26 Shock Sulfa (Sulfonamide Allergy Intermediate Hives Verified 12/18/22 01:26 Antibiotics) Home Medications Medication Instructions Recorded Confirmed Type multivitamin no.47-iron fum 27 1 cap PO DAILY 07/12/20 12/19/22 History mg-folate no.1 1 mg-dha 300 mg capsule (PNV-DHA) Pepcid 1 tablet BYMOUTH DAILY 12/18/22 12/19/22 History ondansetron HCl 4 mg tablet 4 mg PO QID PRN Nausea 12/18/22 12/19/22 History Patient hx anesthesia problems: none Family hx anesthesia problems: none Results Review: All pre-operative results and documents have been reviewed as part of the pre- operative evaluation. [facility] Past Medical History Medical History (Updated 12/19/22 @ 09:19 by Rush Esqueda MD) Breech presentation contractions Spotting Third trimester bleeding, antepartum Urinary tract infection Vaginal discharge during in third trimester Surgical History Surgical History History of delivery Family History Family History Sibling Testicle cancer Father Asthma Mother Diabetes mellitus Grandparent Lung cancer Heart disease Diabetes mellitus Social History Social History Smoking status: Never smoker Substance use: never Spiritual care concerns: No Anes - Eval Final PreProcedure Day of Procedure 12/19/22 11:07 Patient weight: obese Heart: regular rate and rhythm Lungs: clear to auscultation Airway: Mallampati scale class II Neurological: alert and oriented Last oral intake: >/= 8 hours ASA classification: II Emergent: no Anesthetic plan: proceed Anesthesia type and monitoring: regional spinal and standard monitoring Results Review: All pre-operative results and documents have been reviewed as part of the pre- operative evaluation. Informed Consent: The patient's anesthetic plan and its attendant risks and benefits were discussed with the patient/family/POA. Questions were solicited and answers provided to the satisfaction of the patient/family/POA.
--- NOTE | 2022-12-19 11:41 | WPDHPUPDATE1 ---
History and Physical Update Update Date/Time: 12/19/22 11:41 History and Physical has been reviewed, including an updated exam of the patient. There are NO changes in the patient's condition. Risks, benefits, and alternatives have been discussed and questions answered. Patient agrees to proceed with procedure.
[2022-12-19] MEDS: ceFAZolin 2 GM/D5W 50 ML 2 GM/50 ML BAG IVPB (12:47)
[2022-12-19] MEDS: LACTATED RINGERS 250 ML 999 ML IVPB (13:00)
--- NOTE | 2022-12-19 13:47 | P.PCNOB_ITS ---
OB - Delivery Note Procedure Delivery date: 12/19/22 Procedure: Procedures Operation Date: 12/19/22 12:00 <No data on this case meets the specified criteria> Repeat low transverse delivery Delivery monitor: External FHT and External Uterine Route of delivery: Specimen: Yes (cord blood) Quantitative Blood Loss (ml): 235 Anesthesia type: Spinal Disposition: PACU Complications: None Narrative: The patient was taken to the operating room where she was prepared and draped in the usual sterile fashion in dorsal supine position with a leftward tilt. She received cefazolin preoperatively. Spinal anesthesia was found to be adequate. A Pfannenstiel skin incision was made along the previous scar line and was carried through to the underlying layer of the fascia. The fascia was incised in the midline and the incision was extended laterally. The fascia was dissected free of the underlying rectus muscles. The rectus muscles were in the midline. The peritoneum was identified, tented up and entered sharply. The peritoneal incision was extended superiorly and inferiorly with good visualization of the bladder. The bladder blade was placed. The vesicouterine peritoneum was identified, tented up and entered sharply. The incision was extended laterally and the bladder flap was developed. The bladder blade was replaced. The uterus was then incised sharply in a transverse fashion along the lower uterine segment. The incision was extended laterally. The infant's head was delivered atraumatically to the sterile field, followed by the body. The nose and mouth were bulb suctioned. After a delay, the cord was clamped and cut. The was handed off the field. Cord blood was collected. The placenta was removed manually and was passed off the field. The uterus was exteriorized and cleared of all clots and debris. The uterine incision was reapproximated using 0 Monocryl in a running, locked fashion. Excellent hemostasis resulted as did excellent reapproximation of the normal anatomy. The uterus was returned the abdomen. The pelvis was irrigated copiously with warmed normal saline. Rigorous hemostasis was assured. The fascial layer was reapproximated using 0 Vicryl in a running fashion. The skin was closed with a running, subcuticular stitch of 4 0 Vicryl. Dermaflex was applied externally. Sponge, lap, needle and instrument counts were correct. The patient was taken to the recovery room in stable condition. The infant went to the nursery in stable condition. I was present and scrubbed the entire procedure. [place] Baby Date of : 12/19/22 Time of : 13:18 Weeks of gestation at delivery: 39 Infant gender: Female Weight (pounds): 8 Weight (ounces): 9 presentation: vertex Placenta delivery description: Manual Removal and Normal Configuration Cord Vessel Description: 3 Vessels, Nuchal Cord and Delayed Cord Clamping score one minute: 9 score five minutes: 9
--- NOTE | 2022-12-19 13:49 | PM.OBDSVD ---
DS: Admitting Diagnosis Discharge Date 12/22/22 Admitting Diagnosis IUP at 39 2/7 weeks Prior DS: Discharge Diagnosis Discharge Diagnosis (1) History of delivery: Code(s): Z98.891 - History of uterine scar from previous surgery Status: Acute OB - DS: Summary OB Procedures : None OB Procedures Intrapartum: OB Procedures: : None Peripartum Data Procedures: Procedures Operation Date: 12/19/22 12:00 <No data on this case meets the specified criteria> Time Spent with Patient Time attestation: Total time spent providing and/or coordinating discharge services: Discharge Plan Discharge Attending physician on discharge: Rush Esqueda Consulting providers: Marky Cuello ; Albert Asher Discharging Clinician: Rush Esqueda Patient Disposition: Home, Self-Care Activity: may shower, may drive after 2 weeks and pelvic rest Diet: regular Wound Care Instructions: incision open to air Discharge Instructions: Call or return if temperature above 100.4? F, increased abdominal pain, increased vaginal bleeding or any new problems. Education: Mom and Baby Guide Given to: Mother Follow-Up: Call your delivering provider's office for an appointment to be seen in: 4 Weeks Mom and baby should come to the [facility] for the follow-up appointment. Appointment Date/Time: December 23, 2022 at 10:00 am What to expect at your follow-up visit: Physical Assessment Call [phone] if you are unable to keep your appointment time. BREAST CARE: * Wear a snug supportive bra. * For engorgement discomfort: Breast Feeding: * Apply warm moist washcloths * Express milk as needed to relieve engorgement * Wear loose clothing * For sore nipples: * Identify correct latch-on * Apply warm moist washcloths before and after nursing * Air dry nipples after nursing * May apply Lansinoh cream to nipples ABDOMINAL INCISION: (if applicable) * Allow incision to air dry * Do NOT use lotions for powders on your incision * When showering, allow soap and water to run over the incision, but do not wash incision EPISIOTOMY/PERINEAL CARE: * Until bleeding stops, use your joslyn bottle after urinating * Change your pad frequently throughout the day * No tub baths until seen by your physician - You may shower ACTIVITY: * Rest as much as possible. * Do not exercise or lift anything heavier than your baby (such as laundry or other children.) * Avoid stairs or driving as much as possible. * Do not put anything into the vagina. No douching, tampons, or sexual activity until seen by physician. NOTIFY PHYSICIAN IF YOU HAVE ANY QUESTIONS OR IF ANY OF THE FOLLOWING SYMPTOMS OCCUR: * If your incision becomes red, swollen, or more painful than what you have experienced in the hospital. * If your vaginal bleeding becomes foul smelling. * If your vaginal bleeding becomes more heavy than a period or if your bleeding changes from pink to bright red. However, you may pass an occasional walnut-sized clot once or twice for the first week . * If you experience a sharp, shooting pain in you calves. * If you discover a hard, reddened area on your breast or if you experience flu-like symptoms. DIET: * Eat regular, well-balanced meals. * Drink plenty of fluids daily. If , drink to thirst. Stand Alone Forms: General Discharge Information Follow-up/Referrals: Rush Esqueda MD [Physician] - 4 Weeks Discharge Medications: New bupropion HCl [Wellbutrin XL] 150 mg tablet extended release 24 hr 150 mg PO QAM Qty: 30 1RF ibuprofen 600 mg tablet 600 mg PO Q6H PRN (Reason: cramps) Qty: 30 0RF hydrocodone-acetaminophen 5-325 mg tablet 1 - 2 tablet PO Q6H PRN (Reason: pain) Qty: 30 0RF Continued PNV-DHA 27 mg iron-1 mg -300 mg capsule
[2022-12-19] MEDS: OXYTOCIN 30 UNITS/NS 500 ML 30 UNITS/500 ML BAG 125 UNITS IV CONT (14:15)
--- NOTE | 2022-12-19 14:45 | SUR.PHASEI ---
Pt states her face feels hot and she feels dizzy. Vital sign stable, exam WNL. Pt does not appear to be flushed. Pt would like to try apple juice and see if it helps.
--- NOTE | 2022-12-19 15:51 | SUR.PHASEI ---
Pt states her face still feels warm but is feeling slightly better. Instructed to notify RN if anything changes so we can re-evaluate.
[2022-12-19] MEDS: LORATADINE 10 MG TABLET PO (17:06)
--- NOTE | 2022-12-19 17:12 | OBPPTRN ---
[id number] Patient transferred to post room #290 via stretcher. Support person present. Oriented to unit, room, information board, rooming in, admission packet and security measures. Patient verbalizes understanding.
[2022-12-19] MEDS: HYDROcodone/acetaminophen (*CRX) 5-325 MG TABLET 1 TAB PO (19:54)
[2022-12-19] MEDS: IBUPROFEN 600 MG TABLET PO (19:55)
[2022-12-19] MEDS: DEXTROSE 5%/0.45% SOD CHL 1,000 ML 125 ML IV CONT (20:33)
[2022-12-20 04:38] VITALS: BP 93/62; PULSE 60; RESP 18; TEMP 36.6; O2SAT 100
[2022-12-20] MEDS: SIMETHICONE 80 MG TAB.CHEW PO ×5 (05:16→22:23)
[2022-12-20 05:36] LABS: Basophils Percent Auto 0.3 % (0.2-1.2); Eosinophils Absolute Auto 0.1 K/mm3 (0-0.3); Eosinophils Percent Auto 1.4 % (0-4.4); Hematocrit 32.1 % (37.0-47.0); Hemoglobin 10.2 g/dL (12.0-15.0); Immature Granulocyte Absolute 0.03 K/mm3 (0.00-0.031); Immature Granulocyte Percent A 0.5 % (0-0.5); Lymphocytes Absolute Auto 1.42 K/mm3 (0.9-3.2); Lymphocytes Percent Auto 21.3 % (18.3-44.2); Mean Corpuscular HGB Conc 31.8 g/dl (32-36); Mean Corpuscular Hemoglobin 28.4 pg (26-34); Mean Corpuscular Volume 89.4 fl (80-100); Monocytes Absolute Auto 0.2 K/mm3 (0.1-0.6); Monocytes Percent Auto 3.5 % (2.6-8.5); Neutrophils Absolute Auto 4.9 K/mm3 (1.3-6.7); Platelet Count Result 135 k/mm3 (150-375); Red Blood Count 3.59 M/mm3 (4.2-5.4); White Blood Count 6.7 K/mm3 (4.5-10.0)
[2022-12-20 08:05] VITALS: BP 101/70; PULSE 67; RESP 14; TEMP 36.3; O2SAT 100
[2022-12-20] MEDS: DOCUSATE SODIUM 100 MG CAPSULE PO ×2 (09:10→16:07)
[2022-12-20] MEDS: IBUPROFEN 600 MG TABLET PO ×3 (09:11→21:55)
--- NOTE | 2022-12-20 09:33 | PC.NURSE ---
On 12/20/22, the student, Luis Pimentel, provided care and completed [facility] documentation on this patient. I have reviewed the student's documentation and agree with the findings.
[2022-12-20] MEDS: HYDROcodone/acetaminophen (*CRX) 5-325 MG TABLET 1 TAB PO ×2 (11:41→21:57)
--- NOTE | 2022-12-20 12:23 | PC.NURSE ---
[id number] Consulted after a request to assess pumping flange. Introductions were made and mother is pumping now. Mother has pumped with 27mm and states it was uncomfortable. She is using 30mm at this time and states it is comfortable. She states her pump/feed history has been approximately 1 month for children 1,2, then child 3 was exclusively bottle fed. With this infant being her last one she had reached out to [facility] for guidance and decided to pump to stimulate her milk production. We reviewed pumping resources and fit was assessed. There is a small amount of areola going into the barrel, no blanching, no pain and nipple fits in the barrel appropriately with good nipple stretching. Instructions given on cleaning, care, usage, that there should be no pain, pumping schedule for milk production, collection, and storage of human milk. Parents are encouraged to record pumping schedule on the feeding sheet. Patient was assessed for correct placement, flange size, to pump for comfort and nipple stretching/stimulation for adequate milk production every 3 hours (8 times in 24 hours) 1-2 times at night. The human milk that was expressed was collected with a syringe to save for the next feeding. RN offered assistance for a pumping session later if needed. Mother voiced understanding of the education shared along with mom and baby guide for additional resource information. Reported to the primary RN.
[2022-12-20 12:31] VITALS: BP 114/73; PULSE 71; RESP 16; TEMP 36.5; O2SAT 100
--- NOTE | 2022-12-20 12:34 | P.PNOB_ITS ---
OB - PN: Subj Subjective Date/time seen: 12/20/22 12:35 Narrative: Pain OK. Tolerating diet. Anxious, had panic attack last night. Does not feel sad. Says she had a bad reaction to sertraline once. OB - PN: Obj Data Labs 12/20/22 05:20 Labs: Laboratory Results - last 24 hr 12/20/22 05:20 WBC 6.7 RBC 3.59 L Hgb 10.2 L Hct 32.1 L MCV 89.4 MCH 28.4 MCHC 31.8 L RDW 14.0 Plt Count 135 L MPV 13.0 H Immature Gran % (Auto) 0.5 Neut % (Auto) 73.0 Lymph % (Auto) 21.3 [place] % (Auto) 3.5 Eos % (Auto) 1.4 Baso % (Auto) 0.3 Lymph # (Auto) 1.42 [place] # (Auto) 0.2 Eos # (Auto) 0.1 Baso # (Auto) 0.0 Abs Immat Gran (auto) 0.03 Absolute Neuts (auto) 4.9 Absolute Nucleated RBC 0.0 Nucleated RBC % 0.0 OB - PN A/P Plan Comments: A: POD#1, doing well. Anxiety. P: Routine care. Try Wellbutrin XL 150 mg po daily. Exam Narrative: AVSS I/O OK ABD soft, nontender, fundus firm. Incision c/d/i. EXT nontender
--- NOTE | 2022-12-20 14:01 | WPDANLDPN2 ---
Anes-Prog Note L&D Date/Time: 12/20/22 14:01 Comfortable throughout: section Neuraxial method: spinal Epidural/Spinal procedure site: clean & non-tender Neuro status: Neuro function grossly intact. Cardiovascular status: normal Respiratory status: normal Airway patency: baseline Mental status: baseline Post-Op hydration status: normal Vital Signs: Last Vital Signs Temp 36.5 C 12/20/22 12:31 Pulse 71 12/20/22 12:31 Resp 16 12/20/22 12:31 BP 114/73 12/20/22 12:31 Pulse Ox 100 12/20/22 12:31 O2 Del Method Room Air 12/20/22 09:35 Pain score (VAS): 1 I/O: Intake & Output 12/19/22 12/20/22 12/20/22 23:59 07:59 15:59 Intake Total 1400 300 Output Total 1850 Balance -450 300 Post-procedural complaints: none Patient feedback: Patient satisfied with anesthetic care.
--- NOTE | 2022-12-20 14:02 | WPDANLDNPN2 ---
Anes-Prog Note L&D-Neuraxial Date/Time: 12/20/22 14:02 Neuraxial medications: intrathecal PF morphine Opiod-related complaints: none Patient feedback: Patient satisfied with post-operative pain management.
[2022-12-20] MEDS: diphenhydrAMINE HCl CAP 25 MG CAPSULE PO (16:20)
[2022-12-20 21:00] VITALS: BP 112/70; PULSE 78; RESP 16; TEMP 36.9; O2SAT 100
[2022-12-21 08:10] VITALS: BP 118/77; PULSE 87; RESP 16; TEMP 36.6; O2SAT 100
[2022-12-21] MEDS: IBUPROFEN 600 MG TABLET PO ×2 (08:12→20:53)
[2022-12-21] MEDS: DOCUSATE SODIUM 100 MG CAPSULE PO ×2 (08:12→16:11)
[2022-12-21] MEDS: SIMETHICONE 80 MG TAB.CHEW PO ×4 (08:12→21:03)
[2022-12-21] MEDS: HYDROcodone/acetaminophen (*CRX) 5-325 MG TABLET 1 TAB PO ×3 (08:12→20:50)
[2022-12-21] MEDS: buPROPion HCL XL (24 HR) 150 MG TABCR PO (08:12)
[2022-12-21] MEDS: MULTIVIT/MIN/PREN/FOL AC/IRON TABLET 1 TAB PO (08:12)
--- NOTE | 2022-12-21 09:20 | PM.OBPNVD ---
OB - PN: Subj Subjective Date/time seen: 12/21/22 09:20 Narrative: Pain OK. Tolerating diet. OB - PN: Obj Data Labs 12/20/22 05:20 OB - PN A/P Plan Comments: A: POD#2, doing well. P: Routine care. Exam Narrative: AVSS I/O OK ABD soft, nontender, fundus firm. Incision c/d/i. EXT nontender
--- NOTE | 2022-12-21 11:44 | PC.NURSE ---
[id number] Purposefully rounded to assess needs for pumping mother as that is her choice method of feeding her . Mother pumped within 6 hours of the of her . Measured for optimal breast flange fit. Mother's range for proper fitting flange is 24mm-27mm. Instructions given on cleaning, care, usage, that there should be no pain, pumping schedule for milk production, collection, and storage of human milk. Parents are encouraged to record pumping schedule on the feeding sheet. Mother states she slept last night and pumped six times in the last 24 hours. Reinforced nipple stretching/stimulation for adequate milk production every 3 hours (8 times in 24 hours) 1-2 times at night. Reviewed hand expression, power pumping, and stimulating the breast with gentle massage with a gentle shake to improve milk production. Reinforced frequency for satisfied milk production. Mother voiced understanding of the education shared along with mom and baby guide for additional resource information. Reported to the primary RN.
--- NOTE | 2022-12-21 17:27 | PC.NURSE ---
Patient viewed the discharge video Mother & Baby Care, The First Two Weeks . Patient was given the opportunity and encouraged to ask questions. Patient verbalized understanding of information shared and has been given the mother/baby guide for home reference.
[2022-12-21 20:57] VITALS: BP 117/79; PULSE 74; RESP 16; TEMP 36.7; O2SAT 100
[2022-12-22 08:15] VITALS: BP 115/79; PULSE 75; RESP 12; TEMP 36.8; O2SAT 97
[2022-12-22] MEDS: MULTIVIT/MIN/PREN/FOL AC/IRON TABLET 1 TAB PO (08:29)
[2022-12-22] MEDS: DOCUSATE SODIUM 100 MG CAPSULE PO (08:30)
[2022-12-22] MEDS: buPROPion HCL XL (24 HR) 150 MG TABCR PO (08:30)
[2022-12-22] MEDS: IBUPROFEN 600 MG TABLET PO (08:30)
[2022-12-22] MEDS: SIMETHICONE 80 MG TAB.CHEW PO (08:31)
--- NOTE | 2022-12-22 08:56 | PM.OBPNVD ---
OB - PN: Subj Subjective Date/time seen: 12/22/22 08:56 Patient comments: no complaints and pain well controlled baby status: doing well and nursing well OB - PN: Obj Data Labs 12/20/22 05:20 OB - PN A/P Plan day: 3 Plan: routine care, discharge home and follow up 6 weeks (4) Time Spent With Patient Time: Total time spent is greater than 50% in coordination of care (as documented) at patient's floor/unit and/or counseling patient: Time with patient: less than 15 minutes Exam Const: General: cooperative, healthy appearing and comfortable Nutritional Appearance: average body habitus Orientation/consciousness: oriented to person, oriented to place and oriented to time HENMT: Head: normal to inspection Resp: Effort & Inspection: normal respiratory effort Cardio: Rate: regular rate Rhythm: regular rhythm Heart sounds: S1 normal heart sound present and S2 normal heart sound present GI: Inspection: normal to inspection and incision (cdi) Auscultation: normal bowel sounds
--- NOTE | 2022-12-22 11:19 | PC.NURSE ---
[id number] Purposefully rounded to assess for any question or concerns regarding pumping and milk transition/supply. Mother is confident to going home with the plan to pump and feed. Mother states she pumped 40mls and bottle fed that to the this morning. Resources provided for outpatient and mother states she is in contact with Yane Barksdale IBCLC as well.
[2022-12-23 10:29] VITALS: BP 133/81; PULSE 78; RESP 18; TEMP 37.7; O2SAT 100
== END 2022-12-22 11:18 | disposition home or self-care (01) | DRG 788 ==
LOC: ANHLDR 13:50 → ANHOB2 12-21 09:30 → ANHLDR 12-25 07:48 → ANHOB2 12-25 07:48
PROVIDERS: Admitting Provider Obstetrics & Gynecology; Visit Provider Obstetrics & Gynecology
PROC: 10D00Z1 Extraction of Products of Conception, Low, Open Approach (ICD-10-PCS; CPT 59514; principal; 2022-12-19 12:00)
DX: O34.219 Maternal care for unspecified type scar from previous cesarean delivery (principal); O99.344 Other mental disorders complicating childbirth; F41.9 Anxiety disorder, unspecified; O69.81X0 Labor and delivery complicated by cord around neck, without compression, not applicable or unspecified; Z3A.39 39 weeks gestation of pregnancy; Z79.82 Long term (current) use of aspirin; Z37.0 Single live birth
CPT/HCPCS: 36415; 85025; A9270; J0131; J0690; J2274; J2370; J2405; J2590; J7120

== ENCOUNTER 2025-05-28 13:07 | Outpatient (CLI) | payer BC, SELFPAY ==
--- OUTSIDE RECORDS SUMMARY | 2025-05-28 13:15 | XMS_ITS | Clinical Summary ---
Author Organization [facility] [employer] Address [address] [place] [address] Care Team Providers Care Welding Machine Operator Electro Gas Name Role Phone Gage Gonzalez MD Primary Care Provider Mayra Fish FACILITY SECURITY OFFICER-MACHINE ENGINEER Unavailable Unavaila ble Source Comments [facility],non-owned Affiliates and Associated Physician Practices is amultiple site organization consisting of ambulatory clinics and hospital sitesin [place], [place], [place] and [place]. This disclosure is being madepursuant to the Care Everywhere program and may not contain all information available regarding this patient. Last updated 18.[facility] Allergies Active Allergy Reactions Criticality Noted Date Comments Iodine Other Medium 06/13/2017 Sertraline Other High 12/10/2020 Nuro Effests Nuro Effests Shellfish Anaphylaxis High 01/21/2018 Sulfa Drugs Skin Reactions Medium 07/13/2016 Medications * Be aware that medications may not be up to date on this document. Alwaysverify current medications with the patient. cefadroxil (DURICEF) 500 MG capsule Take 1 (one) capsule by mouth BID 6 Active Vit-Fe Fumarate-FA ( VITAMIN) 28-0.8 MG tablet Take 1 (one) tablet by mouth once daily Active diphenhydrAMINE (BENADRYL) 25 MG capsule Take 1 (one) capsule by mouth every 4 hours as needed for Itching Active rizatriptan (Maxalt) 10 MG tablet PLEASE SEE ATTACHED FOR DETAILED DIRECTIONS 3 Active ibuprofen (Motrin) 200 MG tablet 1 (one) tablet every 8 hours Active hydrOXYzine HCl (Atarax) 10 MG tablet Take 1 (one) tablet by mouth 2 Active EPINEPHrine (Epipen) 0.3 MG/0.3ML auto-injector pen INJECT 0.3ML INTO THE MUSCLE INSTRUCTED NEEDED FOR ANAPHYLAXIS. CALL 911 AFTER USE 3 Active cyclobenzaprine (Flexeril) 10 MG tablet Take 1 (one) tablet by mouth 2 times daily as needed muscle spasms 3 Active Active Problems Problem Noted Date Diagnosed Date Vaginal bleeding in , third trimester 1 09/19/2019 Overview (07/20/2020): 2 episodes of bright red bleeding with clots present in past week. Family History Medical History Relation Name Comments Cancer Brother testicular Anxiety Disorder Father Arthritis - Rheumatoid Father Asthma Father Depression Father Cancer - Skin, Non Melanoma Maternal Grandfather Arthritis - Rheumatoid Mother Depression Mother Hypertension Mother Cancer - Breast Other maternal cousin Cancer - Lung Paternal Grandfather Relation Name Status Comments Brother Father Maternal Grandfather Mother Other maternal cousin Paternal Grandfather Social History Tobacco Use Types Packs/Day Years Used Date Smoking Tobacco: Never Smokeless Tobacco: Never Alcohol Use Standard Drinks/Week Comments No 0 (1 standard drink = 0.6 oz pur e alcohol) Comments No Sex and Gender Information Value Date Recorded Sex Assigned at Not on file Legal Sex Female 5:48 PM SENIOR ARCHITECT/DESIGN MANAGER Gender Identity Not on file Sexual Orientation Not on file Last Filed Vital Signs Vital Sign Reading Time Taken Comments Blood Pressure 108/82 06/03/2024 11:11 AM CDT Pulse 73 06/03/2024 11:11 AM CDT Temperature 36.6 C (97.8 F) 07/20/2020 3:27 PM SENIOR ARCHITECT/DESIGN MANAGER Respiratory Rate 18 06/03/2024 11:11 AM CDT Oxygen Saturation 98% 06/03/2024 11:11 AM CDT Inhaled Oxygen Concentration - - Weight 86.6 kg (191 lb) 06/03/2024 11:11 AM CDT Height 157.5 cm (5' 2) 06/03/2024 9:52 AM CDT Body Mass Index 34.93 06/03/2024 9:52 AM CDT Plan of Treatment Health Maintenance Due Date Last Done Comments HIV SCREENING 2007 HEPATITIS C SCREENING 07/07/2010 DTAP/TDAP/TD VACCINES (1 - Tdap) 2011 HEPATITIS B VACCINE (1 of 3 - 19+ 3-dose series) 2011 PAP SMEAR 2013 HPV VACCINE (1 - 3-dose SCDM series) 2019 DEPRESSION SCREENING 09/10/2024 COVID-19 VACCINE ( - season) 2025 INFLUENZA VACCINE (#1) 2025 3, 07/23/2022, 07/15/2020, Additional history exists ZOSTER VACCINE (1 of 2) 2042 HIB VACCINE Aged Out No longer eligi ble based on patient's age to complete this topic MENINGOCOCCAL (Group B) VACCINE SHARED DECISION-MAKING Aged Out No longer eligible based on patient's age to complete this topic MENINGOCOCCAL GROUPS A/C/Y/W VACCINE Aged Out No longer eligible based on patient's age to complete this topic PNEUMOCOCCAL VACCINE Aged Out No long er eligible based on patient's age to complete this topic Insurance [facility] Care Teams Welding Machine Operator Electro Gas Relationship Specialty Start Date End Date Gage Gonzalez MD [address] [place] [address] [id number] [place] [address] PCP - General Family Medicine 03/27/23 Mayra Fish, FACILITY SECURITY OFFICER-MACHINE ENGINEER [address] [place] [address] [id number] [place] [address] Nurse Practitioner Nurse Practitioner 03/28/23
--- OUTSIDE RECORDS SUMMARY | 2025-05-28 13:15 | XMS_ITS | Encounter Summary ---
Author Organization [facility] Address [address] [place] [address] Phone Care Team Providers Care Mechanical Lead Name Role Phone Sunni Sabrina PAC Primary Care Provider + Reason for Referral * PT/OT/ST (Routine) - Open Specialty Diagnoses / Procedures Referred By Contac t Referred To Contact Physical Therapy Diagnoses Urge incontinence of urine Tatum White APRN, CNP [address] [place] [phone] Phone: tel: fax: Referral ID Status Reason Start Date Expiration Date Visits Re quested Visits Authorized [id number] Open 06/12/2024 50 50 Scheduling Instructions Encounter Details Date Type Department Care Team (Late st Contact Info) Description 06/12/2024 Transcribe Orders [facility] [address] [place] [address] Tatum White APRN CABLE MAINTAINER [address] [place] [phone] Urge incontinence of urine (Primary Dx) Social History Tobacco Use Types Packs/Day Years Used Date Smoking Tobacco: Never Smokeless Tobacco: Never Comments:Never used Alcohol Use Standard Drinks/Week Comments Not Currently 0 (1 standard drink = 0.6 oz pur e alcohol) Do not drink alcohol PHQ-2 Answer Date Recorded Total Score - Questions 1-9 0 05/0 09/2022 Education Answer Date Recorded What is the highest level of school you have completed or the highest degree you have received? Associate degree: occupational, technical, or vocational program 01/11/2023 Sexually Active Control Partners Comments Yes Male Tubal Ligation planned during csection Comments No Sex and Gender Information Value Date Recorded Sex Assigned at Not on file Legal Sex Female 8:07 PM PREPARATION ROOM MANAGER Gender Identity Not on file Sexual Orientation Not on file documented as of this encounter Plan of Treatment Scheduled Referrals Name Type Priority Associated Diagnoses Orde r Schedule PHYSICAL THERAPY REFERRAL Outpatient Referral Routine Urge incontinence of urine Expected: 06/12/2024, Expires: 06/12/2025 documented as of this encounter Visit Diagnoses Diagnosis Urge incontinence of urine- Primary Urge incontinence documented in this encounter Additional Health Concerns Assessment Noted Time PHQ-9 Depression Total Score: 0 01/09/20 1:00 PM CDT documented as of this encounter Care Teams Mechanical Lead Relationship Specialty Start Date End Date Iwona Moeller PAC [address] [place] [address] PCP - General Physician Training Lead 11/14/22 documented as of this encounter
--- OUTSIDE RECORDS SUMMARY | 2025-05-28 13:15 | XMS_ITS | Clinical Summary ---
Author Organization [facility] Address [address] [place] [address] Care Team Providers Care Tank Erector Name Role Phone Tatum White NP Primary Care Provider + [phone] Rush Esqueda MD Unavailable [phone] Allergies Active Allergy Reactions Criticality Noted Date Comments Amoxicillin-Pot Clavulanate Itching Low 06/11/2024 Hands and eyes itching; mild rash on face/stomach/arms Iodine Hives Medium 06/13/2017 Sertraline Other (See comments),Hives,Naus ea & Vomiting High 12/10/2020 Nuro Effests Nuro Effests Nuro Effests Shellfish Containing Products Anaphylaxis,Other (See comments),Rash High 01/21/2018 Shellfish Derived Anaphylaxis High 01/21/2018 Sulfa (Sulfonamide Antibiotics) Hives,Rash Medium 04/02/2012 Reaction: Hives, , Reaction: Hives, Sulfa (Sulfonamide Antibiotics) Hives High 11/24/2024 Sulfamethoxazole Hives Reaction: HIVES, Sulfasalazine Hives Medium 07/13/2016 Medications ibuprofen (ADVIL,MOTRIN) 200 mg tab/cap 1 tablet/capsule (200 mg total) every 8 hours Active rizatriptan DISTANCE LEARNING ADMINISTRATOR (Maxalt-DISTANCE LEARNING ADMINISTRATOR) 10 mg disintegrating tabletIndications: Migraine without aura and without status migrainosus, not intractable Take 1 tablet (10 mg total) by mouth once as needed for migraine Take at onset of headache, if no improvement in 2 hours may take a second tablet, not to exceed 2 tablets in 24 hours 12 tablet 5 05/07/20 23 Active hydrOXYzine (ATARAX) 25 mg tabletIndications: Generalized anxiety disorder TAKE 0.5-1 TABLET BY MOUTH TWICE A DAY NEEDED FOR ANXIETY 90 tablet 2 05/19/20 24 Active cyclobenzaprine (FLEXERIL) 10 mg tabletIndications: Acute bilateral low back pain, unspecified whether sciatica present Take 1 tablet (10 mg total) by mouth 3 (three) times a day as needed for muscle spasms 30 tablet 1 07/07/20 24 Active traZODone (DESYREL) 50 mg tabletIndications: Psychophysiologica l insomnia Take 1-2 tablets by mouth nightly as needed for insomnia 90 tablet 08/22/20 24 Active vilazodone (VIIBRYD) 10 mg tablet 1 tablet (10 mg total) daily Active LORazepam (ATIVAN) 0.5 mg tablet Take 1 tablet (0.5 mg total) by mouth every 6 (six) hours as needed Active EPINEPHrine 0.3 mg/0.3 mL auto-injection syringeIndications :Anaphylaxis Inject 0.3 mL (0.3 mg total) into the muscle as instructed as needed for anaphylaxis Call 911 after use. 1 each 2 04/06/20 25 026 Active Active Problems Problem Noted Date Diagnosed Date Chiari malformation type I 12/22/2024 Assessment & Plan (12/22/2024 1:12 PM CDT): -Chronic, not at goal -Patient reports neck pain -Referral sent to Neurology for further evaluation and management MRI brain and cervical spine 09/17/2023: 1. Mild Chiari 1 malformation with 6 mm inferior descent of the cerebellar tonsils. No evidence of syrinx. Small posterior fossa arachnoid cyst measuring 1.6 cm. 2. Otherwise unremarkable brain MRI. 3. No significant stenosis in the cervical spine. Chronic neck pain 12/22/2024 Assessment & Plan (12/22/2024 1:11 PM CDT): -Chronic, not at goal -Patient goes to a chiropractor -Referral sent to neurology given neck pain and Chiari malformation Other chest pain 10/29/2024 Assessment & Plan (10/29/2024 2:07 PM SOLAR BUSINESS DEVELOPER): -acute, not at goal -Likely related to anxiety -Advised patient to keep scheduled appointment with Cardiology on 11/24/2024 Mild episode of recurrent major depressive disor sandrine 08/11/2024 Assessment & Plan (04/08/2025 2:51 PM CDT): -chronic, stable- anxiety is improving, but not at goal -patient has tried venlafaxine and BuSpar, which did not help -Patient is unable to tolerate Zoloft and SSRIs -continue on hydroxyzine 25 mg 1/2-1 tablet twice daily as needed for anxiety. -Continue on Viibryd 10 mg daily -Continue seeing Psychiatry Patient reiterated no suicidal thoughts at this time; take medication as directed; contact 911 and go to the ER if becomes suicidal; discussed side effects of medication with patient; encouraged healthy diet and exericise; encouraged patient to see a counselor Orders: CBC with auto differential; Future Comprehensive metabolic panel; Future Thyroid Function [place]; Future Lipid panel; Future Hemoglobin A1c; Future Vitamin D 25 hydroxy; Future Assessment & Plan (12/22/2024 1:10 PM CDT): -chronic, stable- anxiety is not at goal -patient has tried venlafaxine and BuSpar, which did not help -Patient is unable to tolerate Zoloft and SSRIs -continue on hydroxyzine 25 mg 1/2-1 tablet twice daily as needed for anxiety. -Advised patient to keep scheduled appointment to establish care with psychiatry on 12/30/2024 -Follow up in 3 months or sooner as needed Patient reiterated no suicidal thoughts at this time; take medication as directed; contact 911 and go to the ER if becomes suicidal; discussed side effects of medication with patient; encouraged healthy diet and exericise; encouraged patient to see a counselor Assessment & Plan (10/29/2024 2:06 PM SOLAR BUSINESS DEVELOPER): -chronic, stable- anxiety is not at goal -patient has tried venlafaxine and BuSpar, which did not help -Patient is unable to tolerate Zoloft and SSRIs -continue on hydroxyzine 25 mg 1/2-1 tablet twice daily as needed for anxiety. -Referral sent to psychiatrist. Advised patient if she is unable to be seen within the next 1-2 months, to start on the desvenlafaxine. -Discussed with the patient that desvenlafaxine is typically used for depression, however she would like to see if it will help with her anxiety -Start on desvenlafaxine ER 25 mg daily. -Recommend counseling -Follow up in 6 weeks or sooner as needed Patient reiterated no suicidal thoughts at this time; take medication as directed; contact 911 and go to the ER if becomes suicidal; discussed side effects of medication with patient; encouraged healthy diet and exericise; encouraged patient to see a counselor Assessment & Plan (08/11/2024 1:38 PM SOLAR BUSINESS DEVELOPER): -chronic, not at goal -patient has tried venlafaxine and BuSpar. -Patient is unable to tolerate Zoloft and SSRIs -continue on hydroxyzine 25 mg 1/2-1 tablet twice daily as needed for anxiety. -Start on duloxetine DR 20 mg daily. Discussed with the patient that we will likely need to increase this dosage. -Follow up in 4 weeks or sooner as needed Patient reiterated no suicidal thoughts at this time; take medication as directed; contact 911 and go to the ER if becomes suicidal; discussed side effects of medication with patient; encouraged healthy diet and exericise; encouraged patient to see a counselor Changes in vision 08/31/2023 Assessment & Plan (08/31/2023 3:19 PM SOLAR BUSINESS DEVELOPER): -chronic, not at goal -continue seeing eye doctor -advised patient we will check to determine exactly what MRI brain images the eye doctor needs prior to ordering brain MRI without contrast Vitamin D deficiency 11/21/2021 Assessment & Plan (04/08/2025 2:51 PM CDT): -chronic, unknown, no data to review at this time to make an evaluation -Discussed/ordered labs -Patient is not taking a supplement for this Orders: CBC with auto differential; Future Comprehensive metabolic panel; Future Thyroid Function [place]; Future Lipid panel; Future Hemoglobin A1c; Future Vitamin D 25 hydroxy; Future Assessment & Plan (08/11/2024 1:40 PM SOLAR BUSINESS DEVELOPER): -chronic, not at/near goal -Discussed/ordered labs -Start on vitamin-D supplement 4,000-5,000 units daily Assessment & Plan (04/09/2024 8:56 AM CDT): -chronic, unknown, no data to review at this time to make an evaluation -Discussed/ordered labs- advised patient to complete previously ordered blood work Assessment & Plan (01/07/2024 3:07 PM CDT): -chronic, unknown, no data to review at this time to make an evaluation -Discussed/ordered labs- advised patient to complete previously ordered blood work Assessment & Plan (10/22/2023 11:51 AM SOLAR BUSINESS DEVELOPER): -chronic, unknown, no data to review at this time to make an evaluation -Discussed/ordered labs Assessment & Plan (03/26/2023 1:51 PM CDT): -chronic, unknown, no data to review at this time to make an evaluation -Discussed/ordered labs Migraine without aura and wi thout status migrainosus, not intractable 05/03/2021 Assessment & Plan (04/08/2025 2:51 PM CDT): -chronic, stable -continue on rizatriptan 10 mg once as needed for migraine -patient goes to a chiropractor every week Discussed avoiding all caffeine: no soda, tea, coffee, chocolate; no wine; no sharp cheeses; no processed meats like hot dogs or bologna; no MSG as found in [place] food; no more than 1/2 banana a day; no artificial sweeteners; fresh bread (less than 24 hours old) Avoid using excedrin, tylenol, ibuprofen or aleve more than twice a week or else you can cause medication overuse/rebound headaches. You may be causing the headaches with the medications you are taking to get rid of them. Be sure to push lots of water as dehydration is a big cause of headaches. Orders: CBC with auto differential; Future Comprehensive metabolic panel; Future Thyroid Function [place]; Future Lipid panel; Future Hemoglobin A1c; Future Vitamin D 25 hydroxy; Future Assessment & Plan (12/22/2024 1:11 PM CDT): -chronic, stable -Reports 1 time the rizatriptan caused a burning sensation in her head and face -continue on rizatriptan 10 mg once as needed for migraine -patient goes to a chiropractor every week -Referral sent to Neurology given Chiari malformation and neck pain Discussed avoiding all caffeine: no soda, tea, coffee, chocolate; no wine; no sharp cheeses; no processed meats like hot dogs or bologna; no MSG as found in [place] food; no more than 1/2 banana a day; no artificial sweeteners; fresh bread (less than 24 hours old) Avoid using excedrin, tylenol, ibuprofen or aleve more than twice a week or else you can cause medication overuse/rebound headaches. You may be causing the headaches with the medications you are taking to get rid of them. Be sure to push lots of water as dehydration is a big cause of headaches. Assessment & Plan (08/11/2024 1:39 PM SOLAR BUSINESS DEVELOPER): -chronic, stable -Reports 1 time the rizatriptan caused a burning sensation in her head and face -continue on rizatriptan 10 mg once as needed for migraine -patient goes to a chiropractor every week -Phone number provided to schedule appointment with neurologist Discussed avoiding all caffeine: no soda, tea, coffee, chocolate; no wine; no sharp cheeses; no processed meats like hot dogs or bologna; no MSG as found in [place] food; no more than 1/2 banana a day; no artificial sweeteners; fresh bread (less than 24 hours old) Avoid using excedrin, tylenol, ibuprofen or aleve more than twice a week or else you can cause medication overuse/rebound headaches. You may be causing the headaches with the medications you are taking to get rid of them. Be sure to push lots of water as dehydration is a big cause of headaches. Assessment & Plan (04/09/2024 8:58 AM CDT): -chronic, stable -continue on rizatriptan 10 mg once as needed for migraine -patient goes to a chiropractor every week -referral has been placed to Neurology. Advised to call and make an appointment Discussed avoiding all caffeine: no soda, tea, coffee, chocolate; no wine; no sharp cheeses; no processed meats like hot dogs or bologna; no MSG as found in [place] food; no more than 1/2 banana a day; no artificial sweeteners; fresh bread (less than 24 hours old) Avoid using excedrin, tylenol, ibuprofen or aleve more than twice a week or else you can cause medication overuse/rebound headaches. You may be causing the headaches with the medications you are taking to get rid of them. Be sure to push lots of water as dehydration is a big cause of headaches. Assessment & Plan (01/07/2024 3:08 PM CDT): -chronic, stable -continue on rizatriptan 10 mg once as needed for migraine -patient goes to a chiropractor every week Discussed avoiding all caffeine: no soda, tea, coffee, chocolate; no wine; no sharp cheeses; no processed meats like hot dogs or bologna; no MSG as found in [place] food; no more than 1/2 banana a day; no artificial sweeteners; fresh bread (less than 24 hours old) Avoid using excedrin, tylenol, ibuprofen or aleve more than twice a week or else you can cause medication overuse/rebound headaches. You may be causing the headaches with the medications you are taking to get rid of them. Be sure to push lots of water as dehydration is a big cause of headaches. Assessment & Plan (10/22/2023 11:51 AM SOLAR BUSINESS DEVELOPER): -chronic, stable -continue on rizatriptan 10 mg once as needed for migraine Discussed avoiding all caffeine: no soda, tea, coffee, chocolate; no wine; no sharp cheeses; no processed meats like hot dogs or bologna; no MSG as found in [place] food; no more than 1/2 banana a day; no artificial sweeteners; fresh bread (less than 24 hours old) Avoid using excedrin, tylenol, ibuprofen or aleve more than twice a week or else you can cause medication overuse/rebound headaches. You may be causing the headaches with the medications you are taking to get rid of them. Be sure to push lots of water as dehydration is a big cause of headaches. Assessment & Plan (08/31/2023 3:17 PM SOLAR BUSINESS DEVELOPER): -chronic, stable -continue on rizatriptan 10 mg once as needed for migraine -advised patient we will check to determine exactly what MRI brain images the eye doctor needs prior to ordering brain MRI without contrast Discussed avoiding all caffeine: no soda, tea, coffee, chocolate; no wine; no sharp cheeses; no processed meats like hot dogs or bologna; no MSG as found in [place] food; no more than 1/2 banana a day; no artificial sweeteners; fresh bread (less than 24 hours old) Avoid using excedrin, tylenol, ibuprofen or aleve more than twice a week or else you can cause medication overuse/rebound headaches. You may be causing the headaches with the medications you are taking to get rid of them. Be sure to push lots of water as dehydration is a big cause of headaches. Assessment & Plan (05/11/2023 10:43 AM CDT): -chronic, not at/near goal -continue on rizatriptan 10 mg once as needed for migraine -refer to neurology per patient request Discussed avoiding all caffeine: no soda, tea, coffee, chocolate; no wine; no sharp cheeses; no processed meats like hot dogs or bologna; no MSG as found in [place] food; no more than 1/2 banana a day; no artificial sweeteners; fresh bread (less than 24 hours old) Avoid using excedrin, tylenol, ibuprofen or aleve more than twice a week or else you can cause medication overuse/rebound headaches. You may be causing the headaches with the medications you are taking to get rid of them. Be sure to push lots of water as dehydration is a big cause of headaches. Assessment & Plan (06/15/2021 12:45 PM CDT): HPI: Condition is improving has had 3-4 migraines since the last visit, all been brought on by stress but maxalt works well. Has not needed a second maxalt. Has not been needing ibuprofen with it either. A&P: Discussed/ordered labs, encouraged healthy, low carbohydrate lifestyle and at least 150min/week of exercise, continue on maxalt as needed. Discussed avoiding all caffeine: no soda, tea, coffee, chocolate; no wine; no sharp cheeses; no processed meats like hot dogs or bologna; no MSG as found in [place] food; no more than 1/2 banana a day; no artificial sweeteners; fresh bread (less than 24 hours old) Avoid using tylenol, ibuprofen or aleve more than twice a week or else you can cause medication overuse/rebound headaches. You may be causing the headaches with the medications you are taking to get rid of them. Be sure to push lots of water as dehydration is a big cause of headaches. Assessment & Plan (05/03/2021 2:36 PM CDT): HPI: Condition is worsening , pt has had 2 migraines in the last month. Total of 4 headache days/mo. She can feel the pressure coming on. She feels dizzy/lightheaded. A&P: Discussed/ordered labs, encouraged healthy, low carbohydrate lifestyle and at least 150min/week of exercise, discussed proper use of a triptan-taking within 30min of onset of headache, may repeat in 2 hours if headache not improved, not to exceed 2 in 24 hours; discussed keeping headache diary Discussed avoiding all caffeine: no soda, tea, coffee, chocolate; no wine; no sharp cheeses; no processed meats like hot dogs or bologna; no MSG as found in [place] food; no more than 1/2 banana a day; no artificial sweeteners; fresh bread (less than 24 hours old) Avoid using tylenol, ibuprofen or aleve more than twice a week or else you can cause medication overuse/rebound headaches. You may be causing the headaches with the medications you are taking to get rid of them. Be sure to push lots of water as dehydration is a big cause of headaches. Generalized anxiety disorder 12/10/2020 Assessment & Plan (04/08/2025 2:51 PM CDT): -chronic, improving, but not at goal -patient has tried venlafaxine and BuSpar, which did not help -Patient is unable to tolerate Zoloft and SSRIs -continue on hydroxyzine 25 mg 1/2-1 tablet twice daily as needed for anxiety. -Continue on Viibryd 10 mg daily -Continue seeing Psychiatry Patient reiterated no suicidal thoughts at this time; take medication as directed; contact 911 and go to the ER if becomes suicidal; discussed side effects of medication with patient; encouraged healthy diet and exericise; encouraged patient to see a counselor Orders: CBC with auto differential; Future Comprehensive metabolic panel; Future Thyroid Function [place]; Future Lipid panel; Future Hemoglobin A1c; Future Vitamin D 25 hydroxy; Future Assessment & Plan (12/22/2024 1:10 PM CDT): -chronic, not at/near goal -patient has tried venlafaxine and BuSpar, which did not help -Patient is unable to tolerate Zoloft and SSRIs -continue on hydroxyzine 25 mg 1/2-1 tablet twice daily as needed for anxiety. -Advised patient to keep scheduled appointment to establish care with psychiatry on 12/30/2024 -Follow up in 3 months or sooner as needed Patient reiterated no suicidal thoughts at this time; take medication as directed; contact 911 and go to the ER if becomes suicidal; discussed side effects of medication with patient; encouraged healthy diet and exericise; encouraged patient to see a counselor Assessment & Plan (10/29/2024 2:06 PM SOLAR BUSINESS DEVELOPER): -chronic, not at/near goal -patient has tried venlafaxine and BuSpar, which did not help -Patient is unable to tolerate Zoloft and SSRIs -continue on hydroxyzine 25 mg 1/2-1 tablet twice daily as needed for anxiety. -Referral sent to psychiatrist. Advised patient if she is unable to be seen within the next 1-2 months, to start on the desvenlafaxine. -Discussed with the patient that desvenlafaxine is typically used for depression, however she would like to see if it will help with her anxiety -Start on desvenlafaxine ER 25 mg daily. -Recommend counseling -Follow up in 6 weeks or sooner as needed Patient reiterated no suicidal thoughts at this time; take medication as directed; contact 911 and go to the ER if becomes suicidal; discussed side effects of medication with patient; encouraged healthy diet and exericise; encouraged patient to see a counselor Assessment & Plan (08/11/2024 1:38 PM SOLAR BUSINESS DEVELOPER): -chronic, improving, but not at goal -patient has tried venlafaxine and BuSpar. -Patient is unable to tolerate Zoloft and SSRIs -continue on hydroxyzine 25 mg 1/2-1 tablet twice daily as needed for anxiety. -Start on duloxetine DR 20 mg daily. Discussed with the patient that we will likely need to increase this dosage. -Follow up in 4 weeks or sooner as needed Patient reiterated no suicidal thoughts at this time; take medication as directed; contact 911 and go to the ER if becomes suicidal; discussed side effects of medication with patient; encouraged healthy diet and exericise; encouraged patient to see a counselor Assessment & Plan (04/09/2024 8:57 AM CDT): -chronic, improving, but not at goal -patient has tried venlafaxine and BuSpar. Patient does not start Prozac or Pristiq -Discussed/ordered labs -continue on hydroxyzine 25 mg 1/2-1 tablet twice daily as needed for anxiety. Patient reiterated no suicidal thoughts at this time; take medication as directed; contact 911 and go to the ER if becomes suicidal; discussed side effects of medication with patient; encouraged healthy diet and exericise; encouraged patient to see a counselor Assessment & Plan (01/07/2024 3:08 PM CDT): -chronic, improving -patient has tried venlafaxine and BuSpar. Patient does not start Prozac or Pristiq -Discussed/ordered labs- advised patient to complete previously ordered blood work -continue on hydroxyzine 25 mg 1/2-1 tablet twice daily as needed for anxiety. Patient has been taking 1/2 tablet every night Patient reiterated no suicidal thoughts at this time; take medication as directed; contact 911 and go to the ER if becomes suicidal; discussed side effects of medication with patient; encouraged healthy diet and exericise; encouraged patient to see a counselor Assessment & Plan (10/22/2023 11:52 AM SOLAR BUSINESS DEVELOPER): -chronic, worsening -patient has tried venlafaxine and BuSpar. Patient does not start Prozac. -Discussed/ordered labs -start on Pristiq 25 mg daily -continue on hydroxyzine 25 mg 1/2-1 tablet twice daily as needed for anxiety -follow up in 6 weeks or sooner as needed Patient reiterated no suicidal thoughts at this time; take medication as directed; contact 911 and go to the ER if becomes suicidal; discussed side effects of medication with patient; encouraged healthy diet and exericise; encouraged patient to see a counselor Assessment & Plan (08/31/2023 3:16 PM SOLAR BUSINESS DEVELOPER): Patient reiterated no suicidal thoughts at this time; take medication as directed; contact 911 and go to the ER if becomes suicidal; discussed side effects of medication with patient; encouraged healthy diet and exericise; encouraged patient to see a counselor -chronic, not at/near goal -continue on hydroxyzine 25 mg 1/2-1 whole tablet twice daily as needed -start on fluoxetine 10 mg daily. Advised patient to let me know if she is any side effects from the medication -follow up in 6 weeks or sooner as needed Assessment & Plan (05/11/2023 10:42 AM CDT): Patient reiterated no suicidal thoughts at this time; take medication as directed; contact 911 and go to the ER if becomes suicidal; discussed side effects of medication with patient; encouraged healthy diet and exericise; encouraged patient to see a counselor -chronic, not at/near goal -increase to hydroxyzine 25 mg 0.5-1 tablet twice daily as needed. Advised patient to start taking a whole tablet at night before adding on a 2nd dose. -start on fluoxetine 10 mg daily. Advised patient to start this about a week after the increase hydroxyzine to ensure there are no medication side-effects -follow up in 4 weeks or sooner as needed Assessment & Plan (03/26/2023 1:51 PM CDT): Patient reiterated no suicidal thoughts at this time; take medication as directed; contact 911 and go to the ER if becomes suicidal; discussed side effects of medication with patient; encouraged healthy diet and exericise; encouraged patient to see a counselor -chronic, stable -Discussed/ordered labs -continue on hydroxyzine 10 mg nightly as needed Assessment & Plan (02/15/2022 2:25 PM CDT): Patient reiterated no suicidal thoughts at this time; take medication as directed; contact 911 and go to the ER if becomes suicidal; discussed side effects of medication with patient; encouraged healthy diet and exericise; encouraged patient to see a counselor HPI: Condition is stable she is still having some anxiety here and there. Had a bad episode a few days ago but was able to breathe through it at the moment, took a hydroxyzine 10mg and that helped. This was the first bad one she has had. Every once in a while she has some palpitations that don't last long. Doing breathing techniques or busies herself With her anxiety she does get chest tightness. She feels she is doing well off of a controller med. She seems most anxious about 6pm to midnight. Her anxiety is the worst when her is working nights and she is home alone. A&P: Discussed/ordered labs, encouraged healthy, low carbohydrate lifestyle and at least 150min/week of exercise, Patient has been weaned off of venlafaxine for 2- 3 months. Patient has occasional anxiety feelings but is able to calm herself down. Trial taking the hydroxyzine 10mg on the nights your will be working to try to prevent the anxiety. Then you may use it otherwise as needed. Continue to work on biofeedback. I would like you to work on biofeedback. You can download an lashell on your phone. Examples would be headspace, calm. Please work on this every day. It is similar to if you were a musician with a big performance coming up. You would practice your instrument every day so that on the day of the big performance, you don't even have to think about playing. This works the same way for using the biofeedback to bring you down from those high stress/anxiety moments. If you practice using the biofeedback skills daily, it will become a second nature and you will be able to help yourself more effectively. Assessment & Plan (11/24/2021 3:49 PM CDT): Patient reiterated no suicidal thoughts at this time; take medication as directed; contact 911 and go to the ER if becomes suicidal; discussed side effects of medication with patient; encouraged healthy diet and exericise; encouraged patient to see a counselor HPI: Condition is improving, but not at goal. Patient has been weaned off venlafaxine for almost 1 month. Patient experienced nausea, dizziness, and irritability when weaning off the medication, but she felt that it has improved. Reports occasionally has anxiety feelings or feeling of doom, but is able to calm herself down. Patient states she has not been using the hydroxyzine since stopping the venlafaxine. A&P: Discussed/ordered labs, encouraged healthy, low carbohydrate lifestyle and at least 150min/week of exercise. Continue using hydroxyzine 10mg nightly as needed. I would like you to work on biofeedback. You can download an lashell on your phone. Examples would be headspace, calm, [id number], Personal Casey. Please work on this every day. It is similar to if you were a musician with a big performance coming up. You would practice your instrument every day so that on the day of the big performance, you don't even have to think about playing. This works the same way for using the biofeedback to bring you down from those high stress/anxiety moments. If you practice using the biofeedback skills daily, it will become a second nature and you will be able to help yourself more effectively. Assessment & Plan (09/20/2021 1:32 PM SOLAR BUSINESS DEVELOPER): Patient reiterated no suicidal thoughts at this time; take medication as directed; contact 911 and go to the ER if becomes suicidal; discussed side effects of medication with patient; encouraged healthy diet and exericise; encouraged patient to see a counselor HPI: Condition is stable, pt feels she was doing well mood box on the venlafaxine but was having increased weight. She feels that if she comes off of the med she will be more franklin and does not want to have those symptoms. A&P: Discussed/ordered labs, encouraged healthy, low carbohydrate lifestyle and at least 150min/week of exercise, pt has negative test in office today. We will switch pt to escitalopram 10mg Daily. Use the switch wean noted below. Please keep your med by your nightstand with your glasses and when you wake up in the am take it when you put your glasses on. Please do not cold turkey stop this type of medication. To switch medication: Week 1: Take current med, Take current med, Take new med, Take current med, Take current med, Take new med, Take current med Week 2: Take current med, Take new med, Take current med, Take new med, Take current med, Take new med, Take current med Week 3: Take new med, Take new med, Take current med, Take new med, Take new med, Take current med, Take new med Week 4: Take new med daily Assessment & Plan (06/15/2021 12:49 PM CDT): Patient reiterated no suicidal thoughts at this time; take medication as directed; contact 911 and go to the ER if becomes suicidal; discussed side effects of medication with patient; encouraged healthy diet and exericise; encouraged patient to see a counselor HPI: Condition is improving, but not at goal , not having panic attacks. has seen a change and says she is doing much better. A&P: Discussed/ordered labs, encouraged healthy, low carbohydrate lifestyle and at least 150min/week of exercise, our last office visit we started patient on venlafaxine XR 37.5 mg daily. We also gave hydroxyzine 10 mg to use at dinner. She has not been needing the hydroxyzine. May use it as needed only. Pt states she has been more gassy since being on meds. 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 This will help maintain the good bacteria that is in your gut. Assessment & Plan (05/03/2021 2:41 PM CDT): Buspirone made her feel jittery/dizzy. She has been on zoloft in the past and felt similar. She has not started on the venlafaxine as she is afraid it is in the same class as the zoloft. Discussed this is hitting a different receptor. We will have pt take the venlafaxine xr 37.5mg daily. Discussed that this is going to take about 6 wks to start working. We will give hydroxyzine 10mg to use at dinner. This will help with itching/hives and anxiety, which is likely causing the hives. I would like you to work on biofeedback. You can download an lashell on your phone. Examples would be headspace, calm, [id number], Personal Casey. Please work on this every day. It is similar to if you were a musician with a big performance coming up. You would practice your instrument every day so that on the day of the big performance, you don't even have to think about playing. This works the same way for using the biofeedback to bring you down from those high stress/anxiety moments. If you practice using the biofeedback skills daily, it will become a second nature and you will be able to help yourself more effectively. Return in 6 wks. Assessment & Plan (04/01/2021 4:03 PM CDT): Patient has not yet tried the Venlafaxine as she was anxious about starting it. She notes that she is going to start it thought today after checking with me that it was ok to take after receiving the COVID-19 vaccine. Will have patient follow up in 4 weeks to evaluate effectiveness. Assessment & Plan (12/31/2020 9:38 AM CDT): Has worsened overall. With adverse effects from the Buspirone we will stop that and trial Effexor. Debated with another SSRI but patient very worried with her experience with Zoloft in the past. Also discussed counseling as an option, list provided. Shellfish allergy 08/26/2019 Assessment & Plan (04/08/2025 2:51 PM CDT): Patient's EpiPen will soon. Refill sent Orders: EPINEPHrine 0.3 mg/0.3 mL auto-injection syringe; Inject 0.3 mL (0.3 mg total) into the muscle as instructed as needed for anaphylaxis Call 911 after use. Assessment & Plan (08/31/2023 3:17 PM SOLAR BUSINESS DEVELOPER): Patient's EpiPen will soon. Refill sent Assessment & Plan (12/10/2020 7:36 AM CDT): Pt needing refill of epipen. Prescribed today. Assessment & Plan (08/26/2019 10:44 AM SOLAR BUSINESS DEVELOPER): Anaphylactic allergy. Needs refill on epi pen Class 1 obesity without seri ous comorbidity with body mass index (BMI) of 34.0 to 34.9 in adult 07/22/2018 Assessment & Plan (05/15/2025 7:12 AM CDT): Wt Readings from Last 3 Encounters: 05/14/25 89.8 kg (198 lb) 04/06/25 89.4 kg (197 lb 3.2 oz) 02/09/25 86.2 kg (190 lb) Body mass index is 34.73 kg/m . -Chronic, not at goal of <30 bmi -Discussed recommendations for exercise at least 30 minutes moderate to vigorous exercise as tolerated most days of the week. (minimum 150 minutes weekly) -Discussed importance of well-balanced diet Assessment & Plan (04/08/2025 2:51 PM CDT): -chronic, not at/near goal goal BMI <30 Healthy, high-protein, lower carbohydrate, lower fat lifestyle and exercise for 150min/week recommended Recommend tracking everything you put in your mouth on an lashell like [place] Hand Measurements: A fist or cupped hand = 1 cup 1 cup = 1 -2 servings of fruit juice 1 oz. of cold cereal 2 oz. of cooked cereal, rice or pasta 8 oz. of milk or yogurt A thumb = 1 oz. of cheese Consuming low-fat cheese helps you meet the required servings from the milk, yogurt and cheese group. 1 oz. of low-fat cheese counts as 8 oz. of milk or yogurt. Handful = 1-2 oz. of snack food Thumb tip = 1 teaspoon Keep high-fat foods, such as peanut butter and mayonnaise, at a minimum. One teaspoon is equal to the end of your thumb, from the knuckle up. Three teaspoons equals 1 tablespoon. Palm = 3 oz. of meat Choose lean poultry, fish, shellfish and beef. One palm size portion equals 3 oz. for an adult and 1 -2 oz. for a child under 5. 1 tennis ball or a fist= 1/2 cup of fruit and vegetables Healthy diets include a variety of colorful fruits and vegetables every day. The secret to serving size is in your hand. Snacking can add up. Because hand sizes vary, compare your fist size to an actual measuring cup. Orders: CBC with auto differential; Future Comprehensive metabolic panel; Future Thyroid Function [place]; Future Lipid panel; Future Hemoglobin A1c; Future Vitamin D 25 hydroxy; Future Assessment & Plan (12/22/2024 7:54 AM CDT): -chronic, not at/near goal goal BMI <30 Healthy, high-protein, lower carbohydrate, lower fat lifestyle and exercise for 150min/week recommended Recommend tracking everything you put in your mouth on an lashell like [place] Hand Measurements: A fist or cupped hand = 1 cup 1 cup = 1 -2 servings of fruit juice 1 oz. of cold cereal 2 oz. of cooked cereal, rice or pasta 8 oz. of milk or yogurt A thumb = 1 oz. of cheese Consuming low-fat cheese helps you meet the required servings from the milk, yogurt and cheese group. 1 oz. of low-fat cheese counts as 8 oz. of milk or yogurt. Handful = 1-2 oz. of snack food Thumb tip = 1 teaspoon Keep high-fat foods, such as peanut butter and mayonnaise, at a minimum. One teaspoon is equal to the end of your thumb, from the knuckle up. Three teaspoons equals 1 tablespoon. Palm = 3 oz. of meat Choose lean poultry, fish, shellfish and beef. One palm size portion equals 3 oz. for an adult and 1 -2 oz. for a child under 5. 1 tennis ball or a fist= 1/2 cup of fruit and vegetables Healthy diets include a variety of colorful fruits and vegetables every day. The secret to serving size is in your hand. Snacking can add up. Because hand sizes vary, compare your fist size to an actual measuring cup. Assessment & Plan (10/29/2024 8:50 AM SOLAR BUSINESS DEVELOPER): -chronic, not at/near goal goal BMI <30 Healthy, high-protein, lower carbohydrate, lower fat lifestyle and exercise for 150min/week recommended Recommend tracking everything you put in your mouth on an lashell like [place] Hand Measurements: A fist or cupped hand = 1 cup 1 cup = 1 -2 servings of fruit juice 1 oz. of cold cereal 2 oz. of cooked cereal, rice or pasta 8 oz. of milk or yogurt A thumb = 1 oz. of cheese Consuming low-fat cheese helps you meet the required servings from the milk, yogurt and cheese group. 1 oz. of low-fat cheese counts as 8 oz. of milk or yogurt. Handful = 1-2 oz. of snack food Thumb tip = 1 teaspoon Keep high-fat foods, such as peanut butter and mayonnaise, at a minimum. One teaspoon is equal to the end of your thumb, from the knuckle up. Three teaspoons equals 1 tablespoon. Palm = 3 oz. of meat Choose lean poultry, fish, shellfish and beef. One palm size portion equals 3 oz. for an adult and 1 -2 oz. for a child under 5. 1 tennis ball or a fist= 1/2 cup of fruit and vegetables Healthy diets include a variety of colorful fruits and vegetables every day. The secret to serving size is in your hand. Snacking can add up. Because hand sizes vary, compare your fist size to an actual measuring cup. Assessment & Plan (08/11/2024 1:37 PM SOLAR BUSINESS DEVELOPER): -chronic, not at/near goal goal BMI <30 Healthy, high-protein, lower carbohydrate, lower fat lifestyle and exercise for 150min/week recommended Recommend tracking everything you put in your mouth on an lashell like [place] Hand Measurements: A fist or cupped hand = 1 cup 1 cup = 1 -2 servings of fruit juice 1 oz. of cold cereal 2 oz. of cooked cereal, rice or pasta 8 oz. of milk or yogurt A thumb = 1 oz. of cheese Consuming low-fat cheese helps you meet the required servings from the milk, yogurt and cheese group. 1 oz. of low-fat cheese counts as 8 oz. of milk or yogurt. Handful = 1-2 oz. of snack food Thumb tip = 1 teaspoon Keep high-fat foods, such as peanut butter and mayonnaise, at a minimum. One teaspoon is equal to the end of your thumb, from the knuckle up. Three teaspoons equals 1 tablespoon. Palm = 3 oz. of meat Choose lean poultry, fish, shellfish and beef. One palm size portion equals 3 oz. for an adult and 1 -2 oz. for a child under 5. 1 tennis ball or a fist= 1/2 cup of fruit and vegetables Healthy diets include a variety of colorful fruits and vegetables every day. The secret to serving size is in your hand. Snacking can add up. Because hand sizes vary, compare your fist size to an actual measuring cup. Assessment & Plan (06/11/2024 1:06 PM CDT): -chronic, not at/near goal goal BMI <30 Healthy, high-protein, lower carbohydrate, lower fat lifestyle and exercise for 150min/week recommended Recommend tracking everything you put in your mouth on an lashell like [place] -discussed with the patient she needs to increase her protein intake and eat lunch so that she is eating enough calories during the day. 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 of cold cereal 2 oz. of cooked cereal, rice or pasta 8 oz. of milk or yogurt A thumb = 1 oz. of cheese Consuming low-fat cheese helps you meet the required servings from the milk, yogurt and cheese group. 1 oz. of low-fat cheese counts as 8 oz. of milk or yogurt. Handful = 1-2 oz. of snack food Thumb tip = 1 teaspoon Keep high-fat foods, such as peanut butter and mayonnaise, at a minimum. One teaspoon is equal to the end of your thumb, from the knuckle up. Three teaspoons equals 1 tablespoon. Palm = 3 oz. of meat Choose lean poultry, fish, shellfish and beef. One palm size portion equals 3 oz. for an adult and 1 -2 oz. for a child under 5. 1 tennis ball or a fist= 1/2 cup of fruit and vegetables Healthy diets include a variety of colorful fruits and vegetables every day. The secret to serving size is in your hand. Snacking can add up. Because hand sizes vary, compare your fist size to an actual measuring cup. Assessment & Plan (04/09/2024 8:58 AM CDT): -chronic, not at/near goal goal BMI <30 Healthy, high-protein, lower carbohydrate, lower fat lifestyle and exercise for 150min/week recommended Recommend tracking everything you put in your mouth on an lashell like [place] -discussed with the patient she needs to increase her protein intake and eat lunch so that she is eating enough calories during the day. 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 of cold cereal 2 oz. of cooked cereal, rice or pasta 8 oz. of milk or yogurt A thumb = 1 oz. of cheese Consuming low-fat cheese helps you meet the required servings from the milk, yogurt and cheese group. 1 oz. of low-fat cheese counts as 8 oz. of milk or yogurt. Handful = 1-2 oz. of snack food Thumb tip = 1 teaspoon Keep high-fat foods, such as peanut butter and mayonnaise, at a minimum. One teaspoon is equal to the end of your thumb, from the knuckle up. Three teaspoons equals 1 tablespoon. Palm = 3 oz. of meat Choose lean poultry, fish, shellfish and beef. One palm size portion equals 3 oz. for an adult and 1 -2 oz. for a child under 5. 1 tennis ball or a fist= 1/2 cup of fruit and vegetables Healthy diets include a variety of colorful fruits and vegetables every day. The secret to serving size is in your hand. Snacking can add up. Because hand sizes vary, compare your fist size to an actual measuring cup. Assessment & Plan (01/07/2024 7:57 AM CDT): -chronic, not at/near goal goal BMI <30 Healthy, high-protein, lower carbohydrate, lower fat lifestyle and exercise for 150min/week recommended Recommend tracking everything you put in your mouth on an lashell like [place] Hand Measurements: A fist or cupped hand = 1 cup 1 cup = 1 -2 servings of fruit juice 1 oz. of cold cereal 2 oz. of cooked cereal, rice or pasta 8 oz. of milk or yogurt A thumb = 1 oz. of cheese Consuming low-fat cheese helps you meet the required servings from the milk, yogurt and cheese group. 1 oz. of low-fat cheese counts as 8 oz. of milk or yogurt. Handful = 1-2 oz. of snack food Thumb tip = 1 teaspoon Keep high-fat foods, such as peanut butter and mayonnaise, at a minimum. One teaspoon is equal to the end of your thumb, from the knuckle up. Three teaspoons equals 1 tablespoon. Palm = 3 oz. of meat Choose lean poultry, fish, shellfish and beef. One palm size portion equals 3 oz. for an adult and 1 -2 oz. for a child under 5. 1 tennis ball or a fist= 1/2 cup of fruit and vegetables Healthy diets include a variety of colorful fruits and vegetables every day. The secret to serving size is in your hand. Snacking can add up. Because hand sizes vary, compare your fist size to an actual measuring cup. Assessment & Plan (10/22/2023 11:50 AM SOLAR BUSINESS DEVELOPER): -chronic, not at/near goal goal BMI <30 Healthy, high-protein, lower carbohydrate, lower fat lifestyle and exercise for 150min/week recommended Recommend tracking everything you put in your mouth on an lashell like E[employer] Hand Measurements: A fist or cupped hand = 1 cup 1 cup = 1 -2 servings of fruit juice 1 oz. of cold cereal 2 oz. of cooked cereal, rice or pasta 8 oz. of milk or yogurt A thumb = 1 oz. of cheese Consuming low-fat cheese helps you meet the required servings from the milk, yogurt and cheese group. 1 oz. of low-fat cheese counts as 8 oz. of milk or yogurt. Handful = 1-2 oz. of snack food Thumb tip = 1 teaspoon Keep high-fat foods, such as peanut butter and mayonnaise, at a minimum. One teaspoon is equal to the end of your thumb, from the knuckle up. Three teaspoons equals 1 tablespoon. Palm = 3 oz. of meat Choose lean poultry, fish, shellfish and beef. One palm size portion equals 3 oz. for an adult and 1 -2 oz. for a child under 5. 1 tennis ball or a fist= 1/2 cup of fruit and vegetables Healthy diets include a variety of colorful fruits and vegetables every day. The secret to serving size is in your hand. Snacking can add up. Because hand sizes vary, compare your fist size to an actual measuring cup. Assessment & Plan (08/31/2023 3:15 PM SOLAR BUSINESS DEVELOPER): HPI: Condition is not at/near goal goal BMI <30 A&P: Healthy, high-protein, lower carbohydrate, lower fat lifestyle and exercise for 150min/week recommended Recommend tracking everything you put in your mouth on an lashell like [place] Hand Measurements: A fist or cupped hand = 1 cup 1 cup = 1 -2 servings of fruit juice 1 oz. of cold cereal 2 oz. of cooked cereal, rice or pasta 8 oz. of milk or yogurt A thumb = 1 oz. of cheese Consuming low-fat cheese helps you meet the required servings from the milk, yogurt and cheese group. 1 oz. of low-fat cheese counts as 8 oz. of milk or yogurt. Handful = 1-2 oz. of snack food Thumb tip = 1 teaspoon Keep high-fat foods, such as peanut butter and mayonnaise, at a minimum. One teaspoon is equal to the end of your thumb, from the knuckle up. Three teaspoons equals 1 tablespoon. Palm = 3 oz. of meat Choose lean poultry, fish, shellfish and beef. One palm size portion equals 3 oz. for an adult and 1 -2 oz. for a child under 5. 1 tennis ball or a fist= 1/2 cup of fruit and vegetables Healthy diets include a variety of colorful fruits and vegetables every day. The secret to serving size is in your hand. Snacking can add up. Because hand sizes vary, compare your fist size to an actual measuring cup. Assessment & Plan (05/11/2023 6:59 AM CDT): HPI: Condition is stable goal BMI <30 A&P: Healthy, high-protein, lower carbohydrate, lower fat lifestyle and exercise for 150min/week recommended Recommend tracking everything you put in your mouth on an lashell like [place] Hand Measurements: A fist or cupped hand = 1 cup 1 cup = 1 -2 servings of fruit juice 1 oz. of cold cereal 2 oz. of cooked cereal, rice or pasta 8 oz. of milk or yogurt A thumb = 1 oz. of cheese Consuming low-fat cheese helps you meet the required servings from the milk, yogurt and cheese group. 1 oz. of low-fat cheese counts as 8 oz. of milk or yogurt. Handful = 1-2 oz. of snack food Thumb tip = 1 teaspoon Keep high-fat foods, such as peanut butter and mayonnaise, at a minimum. One teaspoon is equal to the end of your thumb, from the knuckle up. Three teaspoons equals 1 tablespoon. Palm = 3 oz. of meat Choose lean poultry, fish, shellfish and beef. One palm size portion equals 3 oz. for an adult and 1 -2 oz. for a child under 5. 1 tennis ball or a fist= 1/2 cup of fruit and vegetables Healthy diets include a variety of colorful fruits and vegetables every day. The secret to serving size is in your hand. Snacking can add up. Because hand sizes vary, compare your fist size to an actual measuring cup. Assessment & Plan (03/26/2023 1:49 PM CDT): HPI: Condition is stable goal BMI <30 A&P: Healthy, high-protein, lower carbohydrate, lower fat lifestyle and exercise for 150min/week recommended Recommend tracking everything you put in your mouth on an lashell like [place] Hand Measurements: A fist or cupped hand = 1 cup 1 cup = 1 -2 servings of fruit juice 1 oz. of cold cereal 2 oz. of cooked cereal, rice or pasta 8 oz. of milk or yogurt A thumb = 1 oz. of cheese Consuming low-fat cheese helps you meet the required servings from the milk, yogurt and cheese group. 1 oz. of low-fat cheese counts as 8 oz. of milk or yogurt. Handful = 1-2 oz. of snack food Thumb tip = 1 teaspoon Keep high-fat foods, such as peanut butter and mayonnaise, at a minimum. One teaspoon is equal to the end of your thumb, from the knuckle up. Three teaspoons equals 1 tablespoon. Palm = 3 oz. of meat Choose lean poultry, fish, shellfish and beef. One palm size portion equals 3 oz. for an adult and 1 -2 oz. for a child under 5. 1 tennis ball or a fist= 1/2 cup of fruit and vegetables Healthy diets include a variety of colorful fruits and vegetables every day. The secret to serving size is in your hand. Snacking can add up. Because hand sizes vary, compare your fist size to an actual measuring cup. Assessment & Plan (02/15/2022 9:49 AM CDT): HPI: Condition is stable goal BMI <30 A&P: Healthy, high-protein, lower carbohydrate, lower fat lifestyle and exercise for 150min/week recommended Recommend tracking everything you put in your mouth on an lashell like [place] Lower carb substitutions: [employer] carries a zero net carb bread If you are looking for whole potatoes, like to use in soup or new potato shape/flavor, radishes are a great replacement If you are looking for mashed potatoes, riced cauliflower in the frozen bag section are a great replacement For pasta, try using zucchini noodles, lay them out on a cookie sheet and pat dry with a tea towel to try to remove as much moisture as possible. Heat your pasta sauce on the stove and put the noodles in for 30-45 seconds. If you leave them in much longer they will become mushy [place] and/or coconut flour instead of regular flour For pizza dough, try fathead pizza dough recipe online. To get a crispy crust, bake on one side for 8-12 min, then flip over and bake on the other side for 8-12 min, then put toppings on and bake until the cheese on top of pizza melts chavictorino recipe online For ice cream, try the brand Enlightened To replace coffee creamer and make it low carb, use heavy creamer with sugar free [place] sweetener For chips, try Whisps or pork rinds For yogurt, try Two Good uzbek yogurt Use Pinterest for recipe ideas. Type in low carb... Hand Measurements: A fist or cupped hand = 1 cup 1 cup = 1 -2 servings of fruit juice 1 oz. of cold cereal 2 oz. of cooked cereal, rice or pasta 8 oz. of milk or yogurt A thumb = 1 oz. of cheese Consuming low-fat cheese helps you meet the required servings from the milk, yogurt and cheese group. 1 oz. of low-fat cheese counts as 8 oz. of milk or yogurt. Handful = 1-2 oz. of snack food Thumb tip = 1 teaspoon Keep high-fat foods, such as peanut butter and mayonnaise, at a minimum. One teaspoon is equal to the end of your thumb, from the knuckle up. Three teaspoons equals 1 tablespoon. Palm = 3 oz. of meat Choose lean poultry, fish, shellfish and beef. One palm size portion equals 3 oz. for an adult and 1 -2 oz. for a child under 5. 1 tennis ball or a fist= 1/2 cup of fruit and vegetables Healthy diets include a variety of colorful fruits and vegetables every day. The secret to serving size is in your hand. Snacking can add up. Remember, 1 handful equals 1 oz. of nuts and small candies. For chips and pretzels, 2 handfuls equals 1 oz. Because hand sizes vary, compare your fist size to an actual measuring cup. Assessment & Plan (11/24/2021 10:27 AM CDT): HPI: Condition is not at/near goal goal BMI <30 A&P: Healthy, high-protein, lower carbohydrate, lower fat lifestyle and exercise for 150min/week recommended Substitutions: Recommend tracking everything you put in your mouth on an lashell like Bangee or HappyBox [employer] carries a zero net carb bread If you are looking for whole potatoes, like to use in soup or new potato shape/flavor, radishes are a great replacement If you are looking for mashed potatoes, riced cauliflower in the frozen bag section are a great replacement For pasta, try using zucchini noodles, lay them out on a cookie sheet and pat dry with a tea towel to try to remove as much moisture as possible. Heat your pasta sauce on the stove and put the noodles in for 30-45 seconds. If you leave them in much longer they will become mushy [place] and/or coconut flour instead of regular flour For pizza dough, try fathead pizza dough recipe online. To get a crispy crust, bake on one side for 8-12 min, then flip over and bake on the other side for 8-12 min, then put toppings on and bake until the cheese on top of pizza melts chaffles recipe online For ice cream, try the brand Enlightened To replace coffee creamer and make it low carb, use heavy creamer with sugar free Torani sweetener For chips, try Whisps or pork rinds For yogurt, try Two Good uzbek yogurt Use [employer] for recipe ideas. Type in low carb... Assessment & Plan (11/01/2021 11:44 AM SOLAR BUSINESS DEVELOPER): Healthy, low carbohydrate lifestyle and exercise for 150min/week recommended Assessment & Plan (09/20/2021 1:40 PM SOLAR BUSINESS DEVELOPER): HPI: Condition is stable goal BMI <30 A&P: Healthy, high-protein, lower carbohydrate, lower fat lifestyle and exercise for 150min/week recommended Substitutions: Recommend tracking everything you put in your mouth on an lashell like Bangee or HappyBox [employer]i carries a zero net carb bread If you are looking for whole potatoes, like to use in soup or new potato shape/flavor, radishes are a great replacement If you are looking for mashed potatoes, riced cauliflower in the frozen bag section are a great replacement For pasta, try using zucchini noodles, lay them out on a cookie sheet and pat dry with a tea towel to try to remove as much moisture as possible. Heat your pasta sauce on the stove and put the noodles in for 30-45 seconds. If you leave them in much longer they will become mushy Shuqualak and/or coconut flour instead of regular flour For pizza dough, try fathead pizza dough recipe online. To get a crispy crust, bake on one side for 8-12 min, then flip over and bake on the other side for 8-12 min, then put toppings on and bake until the cheese on top of pizza melts chaffles recipe online For ice cream, try the brand Enlightened To replace coffee creamer and make it low carb, use heavy creamer with sugar free Torani sweetener For chips, try Whisps or pork rinds For yogurt, try Two Good uzbek yogurt Use Pinterest for recipe ideas. Type in low carb... Assessment & Plan (06/15/2021 12:04 PM CDT): HPI: Condition is not at/near goal goal BMI <30 A&P: Healthy, high-protein, lower carbohydrate, lower fat lifestyle and exercise for 150min/week recommended Substitutions: Recommend tracking everything you put in your mouth on an lashell like Bangee or [place] carries a zero net carb bread If you are looking for whole potatoes, like to use in soup or new potato shape/flavor, radishes are a great replacement If you are looking for mashed potatoes, riced cauliflower in the frozen bag section are a great replacement For pasta, try using zucchini noodles, lay them out on a cookie sheet and pat dry with a tea towel to try to remove as much moisture as possible. Heat your pasta sauce on the stove and put the noodles in for 30-45 seconds. If you leave them in much longer they will become mushy Shuqualak and/or coconut flour instead of regular flour For pizza dough, try fathead pizza dough recipe online. To get a crispy crust, bake on one side for 8-12 min, then flip over and bake on the other side for 8-12 min, then put toppings on and bake until the cheese on top of pizza melts chaffles recipe online For ice cream, try the brand Enlightened To replace coffee creamer and make it low carb, use heavy creamer with sugar free Torani sweetener For chips, try Whisps or pork rinds For yogurt, try Two Good uzbek yogurt Use Pinterest for recipe ideas. Type in low carb... Assessment & Plan (05/03/2021 2:44 PM CDT): HPI: Condition is not at/near goal goal BMI <30 A&P: Healthy, high-protein, lower carbohydrate, lower fat lifestyle and exercise for 150min/week recommended Substitutions: Recommend tracking everything you put in your mouth on an lashell like Bangee or [place] carries a zero net carb bread If you are looking for whole potatoes, like to use in soup or new potato shape/flavor, radishes are a great replacement If you are looking for mashed potatoes, riced cauliflower in the frozen bag section are a great replacement For pasta, try using zucchini noodles, lay them out on a cookie sheet and pat dry with a tea towel to try to remove as much moisture as possible. Heat your pasta sauce on the stove and put the noodles in for 30-45 seconds. If you leave them in much longer they will become mushy Shuqualak and/or coconut flour instead of regular flour For pizza dough, try fathead pizza dough recipe online. To get a crispy crust, bake on one side for 8-12 min, then flip over and bake on the other side for 8-12 min, then put toppings on and bake until the cheese on top of pizza melts chaffles recipe online For ice cream, try the brand Enlightened To replace coffee creamer and make it low carb, use heavy creamer with sugar free Torani sweetener For chips, try Whisps or pork rinds For yogurt, try Two Good uzbek yogurt Use Pinterest for recipe ideas. Type in low carb... Assessment & Plan (11/26/2018 10:34 AM CDT): BMI 28 Overweight Diet= low-carb Limit white bread, rice, pasta, potatoes, juice, energy drinks, coffee creamers with sugar, sugar sodas, candy, cake, cookies, ice cream. Be more careful with starchy vegetables like corn, carrots, and fruits. Stay away from processed foods, fast foods, fried foods. The cornerstone of this diet is lean grilled meats, green salads or cooked greens, fat-free milk, cottage cheese, nuts like [id number], protein bars with 10-15 g of protein and 20-30 g of carbohydrate. Choose whole grain breads and pastas, brown rice, sweet potatoes, read onions--these whole grains absorb more slowly thus blood sugar does not surge so high so quickly. Avoid drinking juice, eat a piece of fruit instead. Assessment & Plan (09/27/2018 1:57 PM SOLAR BUSINESS DEVELOPER): Diet= low-carb Limit white bread, rice, pasta, potatoes, juice, energy drinks, coffee creamers with sugar, sugar sodas, candy, cake, cookies, ice cream. Be more careful with starchy vegetables like corn, carrots, and fruits. Stay away from processed foods, fast foods, fried foods. The cornerstone of this diet is lean grilled meats, green salads or cooked greens, fat-free milk, cottage cheese, nuts like [id number], protein bars with 10-15 g of protein and 20-30 g of carbohydrate. Choose whole grain breads and pastas, brown rice, sweet potatoes, read onions--these whole grains absorb more slowly thus blood sugar does not surge so high so quickly. Avoid drinking juice, eat a piece of fruit instead. Assessment & Plan (08/30/2018 12:10 PM SOLAR BUSINESS DEVELOPER): Diet= low-carb Limit white bread, rice, pasta, potatoes, juice, energy drinks, coffee creamers with sugar, sugar sodas, candy, cake, cookies, ice cream. Be more careful with starchy vegetables like corn, carrots, and fruits. Stay away from processed foods, fast foods, fried foods. The cornerstone of this diet is lean grilled meats, green salads or cooked greens, fat-free milk, cottage cheese, nuts like [id number], protein bars with 10-15 g of protein and 20-30 g of carbohydrate. Choose whole grain breads and pastas, brown rice, sweet potatoes, read onions--these whole grains absorb more slowly thus blood sugar does not surge so high so quickly. Avoid drinking juice, eat a piece of fruit instead. Assessment & Plan (07/22/2018 7:24 PM SOLAR BUSINESS DEVELOPER): Diet= low-carb Limit white bread, rice, pasta, potatoes, juice, energy drinks, coffee creamers with sugar, sugar sodas, candy, cake, cookies, ice cream. Be more careful with starchy vegetables like corn, carrots, and fruits. Stay away from processed foods, fast foods, fried foods. The cornerstone of this diet is lean grilled meats, green salads or cooked greens, fat-free milk, cottage cheese, nuts like [id number], protein bars with 10-15 g of protein and 20-30 g of carbohydrate. Choose whole grain breads and pastas, brown rice, sweet potatoes, read onions--these whole grains absorb more slowly thus blood sugar does not surge so high so quickly. Avoid drinking juice, eat a piece of fruit instead. Palpitations 07/19/2012 Overview (12/13/2016): Palpitations Assessment & Plan (12/22/2024 1:13 PM CDT): -chronic, not at/near goal -likely related to anxiety -Continue seeing Cardiology -Patient is currently wearing a heart monitor through Cardiology and reports skin irritation- advised patient reach out to her clinical dermatologist for further recommendations Assessment & Plan (10/29/2024 2:08 PM SOLAR BUSINESS DEVELOPER): -chronic, improving, but not at goal -likely related to anxiety -Advised patient to keep scheduled appointment with Cardiology on 11/24/2024 Assessment & Plan (08/11/2024 1:39 PM SOLAR BUSINESS DEVELOPER): -chronic, improving, but not at goal -likely related to anxiety -Phone number provided to schedule appointment with clinical dermatologist Assessment & Plan (04/09/2024 8:57 AM CDT): -chronic, improving, but not at goal -likely related to anxiety -referral has been placed to Cardiology. Recommend patient call and schedule an appointment with Cardiology Assessment & Plan (01/07/2024 3:07 PM CDT): -chronic, improving -likely related to anxiety -referral has been placed to Cardiology, but patient did not go and her palpitations are improved. -discussed with patient that she does not need to follow up with Cardiology at this time Assessment & Plan (08/31/2023 3:18 PM SOLAR BUSINESS DEVELOPER): -chronic, not at/near goal -order had previously been placed for event monitor and echo, but the patient did not complete these because her insurance said they would cost about $2000, however the patient's has been thinks that they miss quoted the -advised patient to complete event monitor and if needed we can also complete the echo Resolved Problems Problem Noted Date Diagnosed Date Resolved Date History of severe acute resp iratory syndrome coronavirus 2 (SARS-CoV-2) disease 03/21/202303/26 Severe anxiety with panic 03/21/2023 depression 08/26/20192022 Assessment & Plan (02/15/2022 2:38 PM CDT): Patient reiterated no suicidal thoughts at this time; take medication as directed; contact 911 and go to the ER if becomes suicidal; discussed side effects of medication with patient; encouraged healthy diet and exericise; encouraged patient to see a counselor HPI: Condition is stable she is still having some anxiety here and there. Had a bad episode a few days ago but was able to breathe through it at the moment, took a hydroxyzine 10mg and that helped. This was the first bad one she has had. Every once in a while she has some palpitations that don't last long. Doing breathing techniques or busies herself With her anxiety she does get chest tightness. She feels she is doing well off of a controller med. She seems most anxious about 6pm to midnight. Her anxiety is the worst when her is working nights and she is home alone. A&P: Discussed/ordered labs, encouraged healthy, low carbohydrate lifestyle and at least 150min/week of exercise, Patient has been weaned off of venlafaxine for 2- 3 months. Patient has occasional anxiety feelings but is able to calm herself down. Trial taking the hydroxyzine 10mg on the nights your will be working to try to prevent the anxiety. Then you may use it otherwise as needed. Continue to work on biofeedback. I would like you to work on biofeedback. You can download an lashell on your phone. Examples would be headspace, calm. Please work on this every day. It is similar to if you were a musician with a big performance coming up. You would practice your instrument every day so that on the day of the big performance, you don't even have to think about playing. This works the same way for using the biofeedback to bring you down from those high stress/anxiety moments. If you practice using the biofeedback skills daily, it will become a second nature and you will be able to help yourself more effectively. Assessment & Plan (11/24/2021 3:49 PM CDT): Patient reiterated no suicidal thoughts at this time; take medication as directed; contact 911 and go to the ER if becomes suicidal; discussed side effects of medication with patient; encouraged healthy diet and exericise; encouraged patient to see a counselor HPI: Condition is stable. Patient has been weaned off venlafaxine for almost 1 month. Patient experienced nausea, dizziness, and irritability when weaning off the medication, but she felt that it has improved. Reports occasionally has anxiety feelings or feeling of doom, but is able to calm herself down. Patient states she has not been using the hydroxyzine since stopping the venlafaxine. A&P: Discussed/ordered labs, encouraged healthy, low carbohydrate lifestyle and at least 150min/week of exercise. Continue using hydroxyzine 10mg nightly as needed for anxiety. I would like you to work on biofeedback. You can download an lashell on your phone. Examples would be headspace, calm, [id number], Personal Casey. Please work on this every day. It is similar to if you were a musician with a big performance coming up. You would practice your instrument every day so that on the day of the big performance, you don't even have to think about playing. This works the same way for using the biofeedback to bring you down from those high stress/anxiety moments. If you practice using the biofeedback skills daily, it will become a second nature and you will be able to help yourself more effectively. Assessment & Plan (09/20/2021 1:39 PM SOLAR BUSINESS DEVELOPER): Patient reiterated no suicidal thoughts at this time; take medication as directed; contact 911 and go to the ER if becomes suicidal; discussed side effects of medication with patient; encouraged healthy diet and exericise; encouraged patient to see a counselor HPI: Condition is stable, pt feels she was doing well mood box on the venlafaxine but was having increased weight. She feels that if she comes off of the med she will be more franklin and does not want to have those symptoms. A&P: Discussed/ordered labs, encouraged healthy, low carbohydrate lifestyle and at least 150min/week of exercise, pt has negative test in office today. We will switch pt to escitalopram 10mg Daily. Use the switch wean noted below. Please keep your med by your nightstand with your glasses and when you wake up in the am take it when you put your glasses on. Please do not cold turkey stop this type of medication. To switch medication: Week 1: Take current med, Take current med, Take new med, Take current med, Take current med, Take new med, Take current med Week 2: Take current med, Take new med, Take current med, Take new med, Take current med, Take new med, Take current med Week 3: Take new med, Take new med, Take current med, Take new med, Take new med, Take current med, Take new med Week 4: Take new med daily Assessment & Plan (08/26/2019 10:57 AM SOLAR BUSINESS DEVELOPER): Discussed starting a medication and pt is agreeable. Will start zoloft . Discussed starting dose and titration to full dose, possible SE and time frame for expected results. Call if any suicidal thoughts or questions concerning SE. Do not abruptly stop medication without calling office. Follow up in 3-4 weeks for recheck and continuation of medications. Also discussed using lorazepam prn for anxiety/ panic attacks and insomnia for 1-2 months. I checked their [place] DEV MANAGER sheet, and it was consistent with prescribed medications. Enlarged lymph node 11/26/2018 04/08/20 Assessment & Plan (11/26/2018 10:43 AM CDT): Enlarged lymph node to the left neck area This is recurrence, it happened several years ago and she was put on antibiotics Will put patient on Keflex twice a day for 7 days Monitor for fever, chills, sweating, weight loss Return in 2 weeks if no improvement Infected finger 08/30/2018 04/08/2019 Assessment & Plan (08/31/2018 4:18 PM SOLAR BUSINESS DEVELOPER): Left hand, ring finger with redness, tenderness and swelling Monitor for increased s/s of infection Start Keflex Apply mupirocin 2-3 times a day Gastroenteritis 08/30/2018 04/08/2019 Assessment & Plan (08/30/2018 12:08 PM SOLAR BUSINESS DEVELOPER): Gastroenteritis Most cases of acute infectious gastroenteritis are viral. Acute viral gastroenteritis is usually self-limited (will take its course)and is treated with supportive measures (fluid repletion and unrestricted nutrition). Viral gastroenteritis typically last 24 to 60 hours. No specific antiviral agents are available. Soft drinks and fruit juices that are high in sugar content should be avoided. Oral rehydration with sports drinks like Gatorade/Powerade and soups and broths help in maintaining electrolyte balance along with hydration. Take medications as prescribed for nausea and vomiting. Smaller meals may be less likely to induce vomiting than larger ones. Morgan, low-residue foods may also be better tolerated than others.Broiled starches/cereals (potatoes, noodles, rice, wheat, and oat) with some salt are excellent foods to consider. In addition, crackers, bananas, yogurt, soups, and boiled vegetables can also be consumed. Prevent the spread of infection with diligent hand hygiene. Irritable bowel syndrome with diarrhea 08/30/2018 03/26/2023 Assessment & Plan (08/28/2019 8:44 PM SOLAR BUSINESS DEVELOPER): Continue to monitor. Symptoms may improve with start of medication for anxiety Assessment & Plan (09/27/2018 1:57 PM SOLAR BUSINESS DEVELOPER): IBS or Irritable bowel Syndrome There is no clear or specific finding in IBS to make the etiology clear! Recurrent Abdominal pain or discomfort or bloating at least 3 times/month with improvement with having a bowel movement, associated with change in frequency of stool and or associated with change of form or appearance of stool. Normal exam of abdomen. Treatment: Lifestyle Changes- Reduce Stress Try Eliminating substances like caffeine, lactose or fructose. Keep a food diary and monitor which foods cause more symptoms Consider taking a Probiotic. May take Dicyclomine or hyoscyamine regularly or as needed in a patient with bloating symptoms. Peppermint oil is an ancient preparation that has antispasmodic properties. A diet low in FODMAPs has been shown to improve multiple symptoms including diarrhea, flatus, bloating, and pain.(Fermentable oligosaccharides, disaccharides, monosaccharides, and polyols (FODMAPs) Patients with IBS have an excellent prognosis in the sense that they have a normal life expectancy, and there are no long-term complications of their disease. However, the symptoms of the disease do tend to recur for much of adulthood, particularly at times of stress or emotional difficulty or dietary indiscretions. Assessment & Plan (08/31/2018 4:32 PM SOLAR BUSINESS DEVELOPER): Pt. Reports long hx of diarrhea Unable to tolerate several different foods IBS or Irritable bowel Syndrome There is no clear or specific finding in IBS to make the etiology clear! Recurrent Abdominal pain or discomfort or bloating at least 3 times/month with improvement with having a bowel movement, associated with change in frequency of stool and or associated with change of form or appearance of stool. Normal exam of abdomen. Treatment: Lifestyle Changes- Reduce Stress Try Eliminating substances like caffeine, lactose or fructose. Keep a food diary and monitor which foods cause more symptoms Consider taking a Probiotic. May take Dicyclomine or hyoscyamine regularly or as needed in a patient with bloating symptoms. Peppermint oil is an ancient preparation that has antispasmodic properties. A diet low in FODMAPs has been shown to improve multiple symptoms including diarrhea, flatus, bloating, and pain.(Fermentable oligosaccharides, disaccharides, monosaccharides, and polyols (FODMAPs) Patients with IBS have an excellent prognosis in the sense that they have a normal life expectancy, and there are no long-term complications of their disease. However, the symptoms of the disease do tend to recur for much of adulthood, particularly at times of stress or emotional difficulty or dietary indiscretions. Yellow stools Dairy upsets stomach Keep food diary and report at next visit Lactose intolerance in adult 08/30/2018 03/26/2023 Rash 07/22/2018 04/08/2019 Assessment & Plan (07/22/2018 7:29 PM SOLAR BUSINESS DEVELOPER): Small cord noted in a few areas where there was IV's when patient was in the hospital No redness, no warmth No fever or Chills Supportive care-warm compresses Complete the prednisone as directed You may use Benadryl or Zyrtec for itching You can use an OTC hydrocortisone cream to soothe your skin topically Keep your skin cool & wear loose clothing to avoid becoming hot, which could increase the itching. If your symptoms worsen- go to ER Acute pansinusitis 01/21/2018 9 Assessment & Plan (01/21/2018 3:53 PM CDT): Complete antibiotics and other meds as prescribed /Tylenol for pain/fever If you have high blood pressure or any kidney disease use Tylenol only. Take an Antihistamines like Zyrtec or Claritin or Trice daily at bedtime for the next 2-3 weeks. Can take Benadryl at bedtime for the next 3-4 days for immediate relief of runny nose and may help with sinus headache. Try saline nasal spray irrigations 2-4 times a day or try using Damaris pot as directed daily then use your Flonase or other corticosteroid nasal spray every day to decrease the swelling and inflammation in your nasal cavities. Drink plenty of water & get plenty of rest A humidifier may also help with congestion Rhinocort Tylenol Saline nasal spray Amoxicillin Zyrtec or plain Claritin NO Flonase, NO MOTRIN Encounter for physical exam[place] related to employment 03/27/2017 12/10/2020 Assessment & Plan (04/08/2019 3:14 PM CDT): Normal physical exam. Physical paper signed for school district. Assessment & Plan (03/27/2017 3:25 PM CDT): Normal physical exam. She also follows with her OB. Contraception 07/15/2014 12/10/2020 Atypical nevus 07/19/2012 03/27/2017 Overview (12/13/2016): Atypical nevus Medical examinations/reports status 07/19/2012 03/27/2017 Overview (12/16/2016): Health care maintenance Uses oral contraceptives 07/19/2012 Overview (12/16/2016): Oral contraceptive use S/P T&A (status post tonsill ectomy and adenoidectomy) 09/10/1996 03/27/2017 Overview (03/27/2017): Left PET, tonsils & adenoids out Encounters Date Type Department Care Team Description 05/25/2025 Orders Only [facility] Primary Care at [address] [phone] Mary Jonas, CERTIFIED INCOME TAX PREPARER Neck pain (Primary Dx) 05/14/2025 10:00 AM CDT Office Visit [facility] Primary Care at [address] [place] [phone] Mary Jonas, LYNSEY Lump of scalp (Primary Dx); Class 1 obesity without serious comorbidity with body mass index (BMI) of 34.0 to 34.9 in adult, unspecified obesity type 04/15/2025 Orders Only [facility] Primary Care at [address] [place] [phone] Tatum White NP 04/06/2025 2:30 PM CDT Office Visit [facility] Primary Care at [address] [place] [address] Tatum White NP Annual physical exam (Primary Dx); Generalized anxiety disorder; Migraine without aura and without status migrainosus, not intractable; Mild episode of recurrent major depressive disorder; Vitamin D deficiency; Shellfish allergy; Acute midline low back pain without sciatica; Screening for thyroid disorder; Screening cholesterol level; Class 1 obesity without serious comorbidity with body mass index (BMI) of 34.0 to 34.9 in adult, unspecified obesity type 04/01/2025 Telephone [facility] Primary Care at [address] [place] [address] Tatum White NP from Last 3 Months Immunizations Immunization Administration Dates Next Due DT 07/01/2004 DTaP 02/10/2008, 7,01/12/1994,01/11,1992,1992 HPV, Quadrivalent 02/25/2013,10/11/2012,07/19/20 12 Hep B, Adolescent or Pediatric 04/11/1993,1991,1992 Hib ([facility]) 10/20/1993,199 3,1992,09/14 Influenza, Quadrivalent, Spl it, Intramuscular 09/10/2015 Influenza, Quadrivalent, Spl it, Preservative Free, Intramuscular 08/31/2023,07/22/2022,07/15/2020,06/22 Influenza, Split 09/19/2013,07/19/2012 Influenza, Trivalent, Preser vative Free, Intramuscular 08/11/2024,09/19/2013 Influenza, Unspecified 06/11/2024(Deferr ed: Patient Refused),09/10/2021(Deferred: Patient Refused),06/19/2021(Deferred: Patient Refused),06/15/2021(Deferred: Patient Refused),06/10/2020,06/10/2019, 019(Deferred: Other),06/14/2018 MMR 05/01/1997,10/20/1993 Meningococcal MCV4P (Menactra) 07/19/2012 OPV 05/01/1997, 4,1992,09/14 Td, adsorbed 07/01/2004 Tdap 10/30/2022, 0,05/22/2018,10/16 Varicella 01/17/1996 Surgical History Surgery Date Site/Laterality Comments OTHER SURGICAL HISTORY 8-4 product of GDM : Vaginal delivery TONSILLECTOMY Tonsillectomy OTHER SURGICAL HISTORY Otitis media: tympanostomy Medical History Medical History Date Comments Hx Other Medical 1992 8-4 product of GDM Headache Migrains Family History Medical History Relation Name Comments Testicular cancer Brother 1 John Cancer, te sticular; Testicular cancer Brother 2 Cancer, te sticular; Hypertension Mother Hypertension; Other Other 1 Family history of Allergy: Penicillin; Diabetes Other 2 Family history of Diabetes mellitus; Other Other 3 No family histo ry of Asthma; Other Other 4 No family histo ry of Sudden <50; Relation Name Status Comments Brother 1 John Brother 2 Mother Other 1 Other 2 Other 3 Other 4 Social History Tobacco Use Types Packs/Day Years Used Date Smoking Tobacco: Never Smokeless Tobacco: Never Tobacco Cessation:Counseling Given: Not Answered Alcohol Use Standard Drinks/Week Comments Never 0 (1 standard drink = 0.6 oz pur e alcohol) PHQ-2 Answer Date Recorded PHQ-2 Total Score (If total score is 3 or more points, staff should administer the PHQ-9) 0 05/14/2025 AUDIT-C Answer Date Recorded Q1: How often do you have a drink containing alcohol? Never 05/14/2025 Q2: How many drinks containi ng alcohol do you have on a typical day when you are drinking? Patient does not drink Q3: How often do you have si x or more drinks on one occasion? Never 05/14/2025 Personal Safety Answer Date Recorded Have you ever been in or are you currently in a harmful physical or emotional relationship or is someone making you feel afraid or unsafe? 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 Gender Identity Female 11/18/2020 11:01 PM SOLAR BUSINESS DEVELOPER Sexual Orientation Straight 11/18/2020 11 :01 PM SOLAR BUSINESS DEVELOPER Obstetrics History Last Filed Vital Signs Vital Sign Reading Time Taken Comments Blood Pressure 122/78 05/14/2025 10:05 AM CDT Pulse 88 05/14/2025 10:05 AM CDT Temperature 36.7 C (98.1 F) 04/06/2025 2:23 PM CDT Respiratory Rate 16 05/14/2025 10:05 AM CDT Oxygen Saturation 98% 05/14/2025 10:05 AM CDT Inhaled Oxygen Concentration - - Weight 89.8 kg (198 lb) 05/14/2025 10:05 AM CDT Height 160.8 cm (5' 3.31) 05/14/2025 10:05 AM C DT Body Mass Index 34.73 05/14/2025 10:05 AM CDT Plan of Treatment Health Maintenance Due Date Last Done Comments Cervical Cancer Screening 10/11/2022 10/11/2021 Covid-19 Vaccine ( season) 2025 04/22/2021, 03/22/2021 Influenza Vaccine (#1) 2025 , 08/31/2023, 07/22/2022, Additional history exists Regular Well Visit/Exam 18-64 04/06/2026 04/06/2025, 01/07/2024, 04/08/2019 Depression Screening 05/14/2026 05/14/2025, 04/06/2025, 12/22/2024, Additional history exists DTaP/Tdap/Td Vaccine (12 - Td or Tdap) 10/30/2032 10/30/2022, 07/15/2020, 05/22/2018, Additional history exists Hepatitis B Screening Completed 04/11/1993 , 1992, 1992 Varicella Vaccines Discontinued 01/17/1996 HPV Vaccines Completed 02/25/2013, 09/2012, 07/19/2012 Hepatitis C Screening Completed 05/07/2024 Pneumococcal vaccine <65 Aged Out No longer eligible based on patient's age to complete this topic Procedures Procedure Name Priority Date/Time Associated Diagnosis Comments HEPATITIS C ANTIBODY Routine 05/07/2024 8:42 AM CDT Encounter for hepatitis C screening test for low risk patient PAP AND HIGH RISK HPV, REFLEX TO GENOTYPING Routine 10/11/2021 from Last 3 Months or Most Recently Relevant to Health Maintenance Results * Hepatitis C antibody Blood (05/07/2024 8:42 AM CDT) Hep C Ab Nonreactive Nonreactive Comment: Interpretive Data Nonreactive: Antibodies to HCV not detected. Does NOT exclude the possibility of recent exposure to HCV. Equivocal: Equivocal for HCV antibodies. Supplemental molecular testing will be automatically performed to determine infection status in accordance with current CDC screening recommendations. Reactive: Positive for HCV antibodies. This may represent current or past HCV infection. Supplemental molecular testing will be automatically performed to determine current infection status in accordance with current CDC screening recommendations. Interpretive data was last revised on 2019. Testing performed by: [facility], [address] [place] [address]., [id number] Blood 05/07/2024 8:42 AM CDT 05/07/2024 6:06 PM CDT Tatum White NP LAB MICROBIOLOGY - GENERAL O RDERABLES Final Result MICHELE MERCADO ([place]) [facility] Department [place] [address] * Pap and High Risk HPV, reflex to Genotyping (10/11/2021) Thin prep 10/11/2021 Narrative Sarah Flores MA - 10/11/2021 Copy of report in labs us Historical Provider LAB CYTOLOGY ORDERABLES F inal Result from Last 3 Months or Most Recently Relevant to Health Maintenance Insurance [facility] [employer] Care Teams Tank Erector Relationship Specialty Start Date End Date Tatum White NP [address] [place] [id number] PCP - General Family Medicine 03/26/23 Rush Esqueda MD [address] [address] Referring Physician Obstetrics and Gynecology 01/07/24
--- OUTSIDE RECORDS SUMMARY | 2025-05-28 13:15 | XMS_ITS | Clinical Summary ---
Author Organization [facility] Address [address] [place] [address] Phone Care Team Providers Care Bone Char Kiln Tender Name Role Phone Iwona Moeller LORE Primary Care Provider + Allergies Active Allergy Reactions Criticality Noted Date Comments Sertraline Other (see Comments) Low 12/10/2020 Nuro Effests Shellfish Allergy Anaphylaxis High 01/21/2018 Sulfa Antibiotics Hives 04/02/2012 Reaction: Hives, , Reaction: Hives, Medications buPROPion (WELLBUTRIN) 150 MG XL tablet Take 150 mg by mouth every morning. 3 Active hydrOXYzine (ATARAX) 25 MG TabletIndication s:Anxiety Take 1 Tablet by mouth every 8 hours as needed for Anxiety. 90 Tablet 3 Active Amoxicillin 500 MG Tablet 3 Active Rizatriptan Benzoate 10 MG TabletIndication s:Other migraine without status migrainosus, not intractable Take 1 Tablet by mouth once as needed for Headaches for up to 1 dose. May repeat in 2 hours in needed 10 Tablet 3 Active Active Problems No known active problems Immunizations Immunization Administration Dates Next Due DT Vaccine 07/01/2004 DTAP VACCINE 02/10/2008, 7,01/12/1994,01/11,1992,1992 Hepatitis B Vaccine, Pediatric/adolescent 04/11/1993,1992,1992 Hib (HbOC) 10/20/1993, 3,1992,09/14 Human Papillomavirus Vaccine (HPV), quadrivalent 02/25/2013,10/11/2012,07/19/2012 Influenza Vaccine, Quadrivalent, PF 07/22/2022,1 09/14/2019,06/22/2018 Influenza Vaccine,unspecifie d Formulation 06/10/2020,06/10/2019,06/14/2018 Influenza, Injectable, Quadrivalent 09/10/2015 MMR Vaccine 05/01/1997,10/20/1993 Meningococcal Vaccine 07/19/2012 OPV 05/01/1997, 4,1992,09/14 TD VACCINE 07/01/2004 TDAP Vaccine 10/30/2022, 0,05/22/2018,10/16 Varicella Vaccine Live 01/17/1996 Family History Medical History Relation Name Comments Cancer Brother Brother Testicular Asthma Father Dad Diabetes Father Dad Cancer Maternal Grandfather Grandfather Skin Diabetes Maternal Uncle Uncle Diabetes Mother Mom Hypertension Mother Mom Migraines Mother Mom Cancer Paternal Grandfather Grandfather Lung Relation Name Status Comments Brother Brother Father Dad Alive Maternal Grandfather Grandfather Maternal Uncle Uncle Mother Mom Alive Paternal Grandfather Grandfather Social History Tobacco Use Types Packs/Day Years Used Date Smoking Tobacco: Never Smokeless Tobacco: Never Tobacco Cessation:Counseling Given: Not Answered Comments:Never used Alcohol Use Standard Drinks/Week Comments [...] on file Legal Sex Female 8:07 PM [employer] Gender Identity Not on file Sexual Orientation Not on file Last Filed Vital Signs Vital Sign Reading Time Taken Comments Blood Pressure 116/72 02/01/2023 2:05 PM CDT Pulse 74 02/01/2023 2:05 PM CDT Temperature 36.4 C (97.5 F) 02/01/2023 2:05 PM CDT Respiratory Rate 16 11/14/2022 1:25 PM [employer] Oxygen Saturation 100% 02/01/2023 2:05 PM CDT Inhaled Oxygen Concentration - - Weight 77.6 kg (171 lb) 02/01/2023 2:05 PM CDT Height 157.5 cm (5' 2) 02/01/2023 2:05 PM CDT Body Mass Index 31.28 02/01/2023 2:05 PM CDT Plan of Treatment Health Maintenance Due Date Last Done Comments HPV/Cotest 2022 Cervical Cancer Screening ([facility]) 01/18/2025 Pap Smear 01/18/2025 01/18/2022 Influenza Immunization (#1) 05/11/202507/11, 07/15/2020, 06/10/2020, Additional history exists SARS-COV-2 Immunization ( season) 2025 04/22/2021, 03/22/2021 DTaP/Tdap/Td Immunization (12 - Td or Tdap) 10/30/2032 10/30/2022, 07/15/2020, 05/22/2018, Additional history exists Respiratory Syncytial Virus (RSV) Immunization (Adult) (1 - 1-dose 75+ series) 2067 Hepatitis B Immunization Completed 993, 1992, 1992 Meningococcal Immunization (ACWY) Aged Out 07/19/2012 No longer eligible based on patient's age to complete this topic Human Papillomavirus (HPV) Immunization Completed 02/25/2013, 10/11/2012, 07/19/2012 Hepatitis C Virus (HCV) Screening Completed 06/09/2022 Pneumococcal Immunization Combined Aged Out No longer eligible based on patient's age to complete this topic Rotavirus Immunization Aged Out No lo nger eligible based on patient's age to complete this topic [place] [address] [address] [place] [address] Care Teams Bone Char Kiln Tender Relationship Specialty Start Date End Date Iwona Moeller [address] [place] [address] PCP - General Physician Marketing Support Specialist 11/14/22
[2025-05-28 14:27] LABS: Thyroid Stimulating Hormone Reflex 1.220 uIU/mL (0.465-4.68)
== END 2025-05-28 13:08 | disposition home or self-care (01) ==
LOC: ANHLAB 13:08
PROVIDERS: Visit Provider Obstetrics & Gynecology
DX: N92.1 Excessive and frequent menstruation with irregular cycle (principal)
CPT/HCPCS: 36415; 84443